=== PATIENT | female | born 1925 | race Caucasian/White ===

== ENCOUNTER 2016-04-17 19:22 | Inpatient (IN) | payer MEDICARE, BC ==
[~2016-04-17] VITALS: Ht 165.1 cm; Wt 80.7 kg
[~2016-04-17 19:22] MED LIST: ATOR10TA PO; Acetaminophen PO; FERR240T2 PO; Furosemide PO; GUAI5SYR4 PO; HYDR-3326 PO; LEVO50TA8 PO; MENT71OI TOP; METO-302 PO; MULT1TAB PO; Nystatin TOP; OMEG1CAP55 PO; PANT40TA4 PO; WARF3TAB29 PO
--- NOTE | 2016-04-17 19:40 | NUR ---
PT BIB [facility] 89 WITH NO COMPLAINTS.ACCORDING TO PARAMEDICS PT DENIED ANY PROBLEMS.PT AWAKE AND ANSWERING SIMPLE QUESTIONS.WHEN I ASKED HER WHAT WAS WRONG SHE TOLD ME SHE ACHED ALL OVER. PTS SON ADVISED PATIENT MENTATION CHANGED 04/16/16 AROUND 2300 WHEN LEVLE OF CONCIOUSNESS BEGAN TO ALTER. NO RESP DISTRESS NOTED OR REPORTED UPON ASSESSMENT, MD AT BEDSIDE.
[2016-04-17] MEDS ORDERED: IV NORMAL SALINE 1000 ML BAG IV ONE (20:30)
[2016-04-17 21:18] LABS: BASOPHILS % (AUTO) 0.3 % (0.0-2.0); EOSINOPHILS # (AUTO) 0.2 K/uL (0.0-0.7); EOSINOPHILS % (AUTO) 1.8 % (0.0-7.0); HEMATOCRIT 33.2 % (37.0-47.0); HEMOGLOBIN 10.9 g/dL (12.0-16.0); LYMPHOCYTES # (AUTO) 0.7 K/uL (0.8-4.8); LYMPHOCYTES % (AUTO) 7.5 % (20.5-51.5); MEAN CORPUSCULAR HEMOGLOBIN 29.9 uug (27.0-31.0); MEAN CORPUSCULAR HGB CONC 33 g/dL (32.0-37.0); MEAN CORPUSCULAR VOLUME 91.1 fL (81.0-99.0); MONOCYTES # (AUTO) 0.5 K/uL (0.1-1.30); MONOCYTES % (AUTO) 5.6 % (0.0-11.0); NEUTROPHILS # (AUTO) 7.5 K/uL (1.8-8.9); NEUTROPHILS % (AUTO) 84.8 % (38.5-71.5); PLATELET COUNT (AUTO) 201 K/uL (150-450); RED BLOOD CELL COUNT(AUTO) 3.64 MIL/uL (4.20-5.40); RED CELL DISTRIBUTION WIDTH 13.8 % (11.5-14.5); WHITE BLOOD COUNT (AUTO) 8.9 K/uL (4.0-11.2)
[2016-04-17 21:29] LABS: CALCIUM 8.1 mg/dL (8.5-10.1); POTASSIUM 5.7 mmol/L (3.5-5.1)
[2016-04-17 21:30] LABS: CREATININE 3.1 mg/dL (0.6-1.3)
[2016-04-17 21:38] LABS: TROPONIN I < 0.017 ng/mL (0.00-0.056)
[2016-04-17 21:43] LABS: ALBUMIN 2.6 g/dL (3.4-5.0); BILIRUBIN,TOTAL 0.2 mg/dL (0.2-1.0); TOTAL PROTEIN, SERUM 6.5 g/dL (6.4-8.2)
[2016-04-17 21:44] LABS: BILIRUBIN,DIRECT 0.1 mg/dL (0.0-0.2)
[2016-04-17 21:53] LABS: LACTIC ACID 0.8 mmol/L (0.4-2.0)
[2016-04-17] MEDS ORDERED: HALOPERIDOL LACTATE 5 MG/1 ML VIAL IV ONE (22:00)
[2016-04-17] MEDS ORDERED: CEFTRIAXONE 1 G in IV DEXTROSE 5% 50 ML IV ONE (22:00)
[2016-04-17] MEDS ORDERED: VANCOMYCIN IV 1,000 MG in IV DEXTROSE 5% 250 ML IV ONE (22:00)
[2016-04-17] MEDS ORDERED: HALOPERIDOL LACTATE 5 MG/1 ML VIAL ONE (22:15)
[2016-04-17] MEDS ORDERED: VANCOMYCIN IV 200 ML ONE (22:20)
[2016-04-17] MEDS ORDERED: CEFTRIAXONE 1 G VIAL ONE (22:21)
--- NOTE | 2016-04-17 23:37 | NUR ---
FAMILY PERSON WENT HOME TO GET COPY OF MEDS FOR VERIFICATION
[2016-04-18] VITALS (43 sets, daily range): BP systolic 56–149; BP diastolic 20–87
[2016-04-18 00:29] LABS: *BILIRUBIN,URIN NEGATIVE (NEGATIVE); *BLOOD, URINE 2+ (NEGATIVE); *CLARITY,URINE CLOUDY (CLEAR); *COLOR,URINE YELLOW (YELLOW); *KETONES,URINE NEGATIVE (NEGATIVE); *PROTEIN,URINE 1+ (NEGATIVE); *UROBILINOGEN,URINE 0.2 E.U./dl (NORMAL); LEUKOCYTE ESTERASE ,URINE 3+ (NEGATIVE); NITRITE, URINE NEGATIVE (NEGATIVE); PH,URINE 5.5 (5.0-8.0); UGLUCOSE NEGATIVE (NEGATIVE)
[2016-04-18] MEDS ORDERED: ONDANSETRON 4 MG/2 ML VIAL IV PRN (00:30)
[2016-04-18] MEDS ORDERED: ACETAMINOPHEN 325 MG TABLET PO PRN (00:30)
[2016-04-18] MEDS ORDERED: CELE-85 PO (00:31)
[2016-04-18] MEDS ORDERED: OMEG1CAP40 PO (00:31)
[2016-04-18] MEDS ORDERED: CHOL100043 PO (00:31)
[2016-04-18] MEDS ORDERED: FERR-58 PO (00:31)
[2016-04-18] MEDS ORDERED: WARF5TAB6 PO (00:31)
[2016-04-18] MEDS ORDERED: ALEN70TA45 PO (00:31)
[2016-04-18] MEDS ORDERED: VALS1TAB71 PO (00:31)
[2016-04-18] MEDS ORDERED: FURO40TA5 PO (00:31)
[2016-04-18] MEDS ORDERED: CALC500T71 PO (00:31)
[2016-04-18 00:52] LABS: BACTERIA,URINE MANY /HPF (NONE SEEN); SQUAMOUS EPITHELIAL CELL,UR FEW /HPF (NONE SEEN); WBC,URINE TNTC /HPF (0-3)
--- NOTE | 2016-04-18 01:00 | NUR ---
PTS SON ADVISED GOWN HAD TO BE REMOVED DUE PT BECOMING EXTREMELY AGITATED, AND TRYING TO HIT STAFF UPON TRYING TO DISROBE PT, ADVISED GOWN WAS CUT TO EASE REMOVAL OF CLOTHING TO TRY TO KEEP PT CALM, AND RELAXED POSSIBLE. PTS SON STATED HE UNDERSTOOD, INITIALLY HE WAS UPSET THAT GOWN HAD BEEN REMOVED IN THAT MANNER. LATER SON WENT ON TO ADVISE THAT HE WAS OK WITH METHOD USED TO HAVE GOWN. PTS SON THANKED STAFF UPON EXITING ER AND ACCOMPANYING NURSE TO TRANSFER PT....
--- NOTE | 2016-04-18 01:15 | NUR ---
Pt. admitted to TELE/CCU BED1 , under care of Dr. HARPER, Belongs List completed, PT TRANSFERRED VIA GURNEY WITH CAREGIVER AND SON AT BEDSIDE... NO RESP DISTRESS NOTED OR REPORTED UPON TRANSFER ASSESSMENT.
--- NOTE | 2016-04-18 01:20 | NUR ---
Admitted to TELE STATUS: In CCU bed #1 as hospital convenience. Son: Sourav Plants [phone] with patient, went home. Loida: child care worker, will stay at bedside. Finishing ATBx via pump to right forearm, site clear. O2 3L N/C; SaO2 monitored. Bell / light yellow urine output. Left leg tender / prior healed Fx. Sent rapid influenza & MRSA of nares. Sleeping S/P Haldol in ER dept.
[2016-04-18] MEDS ORDERED: PANTOPRAZOLE SODIUM 40 MG TABLET.DR PO SCH (07:00)
--- NOTE | 2016-04-18 07:00 | NUR ---
report received from Lico. Patient was admitted to ccu as tele overflow for dereased level of activity and not eating at home. admittibng diagnoses are AMS, CHF, HYPERKALEMIA, warfarin induced coagulopathy. she has medical history that includes AOTIC VALVE replacement, bladder CA osteoarthritis. ekg is sinus tach 102/min with wide qrs 0.12 secs. bp stable 149/50. on at 3lnc, she has a suarez catheter draning urine appr 20ml/hr. she has intermittent leg compressors. pedal pulses are weak to palpaton. she has eccyhmotic areas bilateral arms. is afebrile Addendum: 04/18/16 at 0859 by TAMI MARTINEZ RN Amended: Links added.
[2016-04-18 08:16] LABS: BASOPHILS # (AUTO) 0.1 K/uL (0.0-0.2); BASOPHILS % (AUTO) 0.5 % (0.0-2.0); EOSINOPHILS # (AUTO) 0.1 K/uL (0.0-0.7); EOSINOPHILS % (AUTO) 0.6 % (0.0-7.0); HEMATOCRIT 31.6 % (37.0-47.0); HEMOGLOBIN 10.3 g/dL (12.0-16.0); LYMPHOCYTES % (AUTO) 9.6 % (20.5-51.5); MEAN CORPUSCULAR HEMOGLOBIN 30.2 uug (27.0-31.0); MEAN CORPUSCULAR HGB CONC 33 g/dL (32.0-37.0); MEAN CORPUSCULAR VOLUME 92.6 fL (81.0-99.0); MONOCYTES # (AUTO) 0.5 K/uL (0.1-1.30); MONOCYTES % (AUTO) 4.8 % (0.0-11.0); NEUTROPHILS # (AUTO) 8.8 K/uL (1.8-8.9); NEUTROPHILS % (AUTO) 84.5 % (38.5-71.5); PLATELET COUNT (AUTO) 188 K/uL (150-450); RED BLOOD CELL COUNT(AUTO) 3.41 MIL/uL (4.20-5.40); RED CELL DISTRIBUTION WIDTH 14.6 % (11.5-14.5); WHITE BLOOD COUNT (AUTO) 10.5 K/uL (4.0-11.2)
[2016-04-18 09:08] LABS: ALBUMIN 2.5 g/dL (3.4-5.0); BILIRUBIN,TOTAL 0.3 mg/dL (0.2-1.0); CALCIUM 7.7 mg/dL (8.5-10.1); MAGNESIUM 2.5 mg/dL (1.8-2.4); PHOSPHOROUS 6.8 mg/dL (2.5-4.9); TOTAL PROTEIN, SERUM 6.4 g/dL (6.4-8.2)
[2016-04-18 09:14] LABS: POTASSIUM 6.2 mmol/L (3.5-5.1)
[2016-04-18 09:21] LABS: THYROID STIMULATING HORMONE 3.376 mIU/mL (0.358-3.740)
--- NOTE | 2016-04-18 09:40 | NUR ---
critical lab result for k 6.[address] fernandes. received new orders Addendum: 04/18/16 at 0948 by TAMI MARTINEZ RN Amended: Links added.
[2016-04-18] MEDS ORDERED: DEXTROSE 50% 50 ML DISP.SYRIN IV ONE (09:45)
[2016-04-18] MEDS ORDERED: INSULIN REGULAR, HUMAN 300 UNIT/3 ML VIAL IV ONE (09:45)
[2016-04-18] MEDS ORDERED: PANTOPRAZOLE SODIUM 40 MG VIAL IV SCH (10:00)
[2016-04-18] MEDS ORDERED: ACETAMINOPHEN 650 MG SUPP.RECT RC PRN (10:00)
[2016-04-18] MEDS ORDERED: PHYTONADIONE 10 MG/1 ML AMPUL SQ ONE (10:00)
[2016-04-18] MEDS ORDERED: Z GUARD REMEDY PASTE 57 GM TUBE TOP PRN (10:00)
[2016-04-18] MEDS: IV D5 1/2 NS 1000 ML 1,000 ML IV PRN (10:09)
--- NOTE | 2016-04-18 10:17 | NUR ---
i ampule 50 ml of dextrose 50% given IV, followed with 10 units IV insulin. Viatmin K also given sq. IV fluid started IV via right forearm at 70ml/hr/ remains oliguric Addendum: 04/18/16 at 1043 by TAMI MARTINEZ RN Amended: Links added. Addendum: 04/18/16 at 1044 by TAMI MARTINEZ RN Amended: Links added.
--- NOTE | 2016-04-18 10:41 | NUR ---
kept NPO .patient is too drowsy to eat and drink. Addendum: 04/18/16 at 1041 by TAMI MARTINEZ RN Amended: Bonilla added. Addendum: 04/18/16 at 1043 by TAMI MARTINEZ RN Amended: Links added. Addendum: 04/18/16 at 1044 by TAMI MARTINEZ RN Amended: Links added.
--- NOTE | 2016-04-18 10:44 | NUR ---
seen by dr bass. orders received. Addendum: 04/18/16 at 1044 by TAMI MARTINEZ RN Amended: Links added.
[2016-04-18] MEDS ORDERED: FUROSEMIDE 40 MG/4 ML VIAL IV ONE (10:45)
[2016-04-18] MEDS: PIPERACILLIN/TAZOBACTAM/D5W 2.25 G in PREMIXED 1 EACH IV SCH ×2 (11:13→18:14)
[2016-04-18] MEDS ORDERED: NOREPINEPHRINE BITARTRATE 16 MG in IV DEXTROSE 5% 500 ML IV PRN (11:30)
--- NOTE | 2016-04-18 12:10 | NUR ---
started on levophed drip per dr poon. patient now ICU status. Dr Souza informed Addendum: 04/18/16 at 1224 by TAMI MARTINEZ RN Amended: Links added.
[2016-04-18] MEDS ORDERED: LORAZEPAM 2 MG/1 ML VIAL IV ONE (14:30)
--- NOTE | 2016-04-18 15:09 | NUR ---
seen by dr fernandes. orders received. medicated for jerky movements Addendum: 04/18/16 at 1509 by TAMI MARTINEZ RN Amended: Links added.
--- NOTE | 2016-04-18 16:55 | NUR ---
Clinical Pharmacy Note: Vancomycin Dosing per Pharmacy Subjective: To start vancomycin in this 89 y/o female for "documented infection" (no MD note yet) Objective: Height: 152cm Weight: 75kg BUN 77/Scr 3.0 (not HD) WBC 10.5 Temperature 97.4 Assessment/Plan: Due to advanced age and renal function, will dose by level for now. 1gm vanco x1 time dose given in ER 04/17 @2300. Will not dose today. Ordered random level with am labs tomorrow 04/19 @ 0600. Will check level and re-dose as appropriate. Will continue to monitor renal function and adjust as needed as well. Will follow daily.
[2016-04-18] MEDS ORDERED: DOCUSATE SODIUM 250 MG CAPSULE PO SCH (21:00)
[2016-04-18] MEDS ORDERED: DOCUSATE SODIUM 100 MG CAPSULE PO SCH (21:00)
[2016-04-19] VITALS (30 sets, daily range): BP systolic 91–143; BP diastolic 37–83
[2016-04-19] MEDS: IV D5 1/2 NS 1000 ML 1,000 ML IV PRN ×2 (01:22→18:01)
[2016-04-19] MEDS: PIPERACILLIN/TAZOBACTAM/D5W 2.25 G in PREMIXED 1 EACH IV SCH ×3 (01:24→18:01)
[2016-04-19 05:20] LABS: BASOPHILS # (AUTO) 0.1 K/uL (0.0-0.2); BASOPHILS % (AUTO) 0.6 % (0.0-2.0); EOSINOPHILS # (AUTO) 0.1 K/uL (0.0-0.7); EOSINOPHILS % (AUTO) 1.7 % (0.0-7.0); HEMATOCRIT 28.7 % (37.0-47.0); HEMOGLOBIN 9.3 g/dL (12.0-16.0); LYMPHOCYTES # (AUTO) 1.4 K/uL (0.8-4.8); MEAN CORPUSCULAR HEMOGLOBIN 29.9 uug (27.0-31.0); MEAN CORPUSCULAR HGB CONC 33 g/dL (32.0-37.0); MEAN CORPUSCULAR VOLUME 91.8 fL (81.0-99.0); MONOCYTES # (AUTO) 0.6 K/uL (0.1-1.30); MONOCYTES % (AUTO) 7.1 % (0.0-11.0); NEUTROPHILS # (AUTO) 6.4 K/uL (1.8-8.9); NEUTROPHILS % (AUTO) 74.6 % (38.5-71.5); PLATELET COUNT (AUTO) 205 K/uL (150-450); RED BLOOD CELL COUNT(AUTO) 3.13 MIL/uL (4.20-5.40); RED CELL DISTRIBUTION WIDTH 14.1 % (11.5-14.5); WHITE BLOOD COUNT (AUTO) 8.6 K/uL (4.0-11.2)
[2016-04-19 06:07] LABS: ALBUMIN 2.3 g/dL (3.4-5.0); BILIRUBIN,TOTAL 0.3 mg/dL (0.2-1.0); CALCIUM 7.2 mg/dL (8.5-10.1); MAGNESIUM 2.5 mg/dL (1.8-2.4); PHOSPHOROUS 6.3 mg/dL (2.5-4.9); POTASSIUM 5.6 mmol/L (3.5-5.1); TOTAL PROTEIN, SERUM 6.2 g/dL (6.4-8.2)
[2016-04-19 06:08] LABS: CREATININE 3.2 mg/dL (0.6-1.3)
[2016-04-19] MEDS: PANTOPRAZOLE SODIUM 40 MG VIAL IV SCH (07:10)
--- NOTE | 2016-04-19 07:15 | NUR ---
report received from Jonathan DE LOS SANTOS. Patient remains as CCu status. off levophed since 3am. stable vital signs. suarez catheter intact with scanty urine. o2 at 3lnc. IV fluid D5 1/2 NS infusing at 70ml/hr. afebrile st 108/min. Addendum: 04/19/16 at 0928 by TAMI MARTINEZ RN Amended: Links added.
[2016-04-19] MEDS ORDERED: DEXTROSE 50% 50 ML DISP.SYRIN IV ONE (09:15)
[2016-04-19] MEDS ORDERED: INSULIN REGULAR, HUMAN 300 UNIT/3 ML VIAL IV ONE (09:15)
[2016-04-19] MEDS ORDERED: VANCOMYCIN IV 1 G in PREMIXED 0 EACH IV ONE (10:00)
[2016-04-19] MEDS ORDERED: BUMETANIDE INJ 3 MG in IV DEXTROSE 5% 48 ML IV ONE (13:00)
--- NOTE | 2016-04-19 13:36 | NUR ---
wendi schafer 3mg started at 20ml/hr Addendum: 04/19/16 at 1336 by TAMI MARTINEZ RN Amended: Links added.
--- NOTE | 2016-04-19 14:25 | NUR ---
dr fernandes was called re positive mrsa chua. orders received Addendum: 04/19/16 at 1441 by TAMI MARTINEZ RN Amended: Links added.
--- NOTE | 2016-04-19 14:25 | NUR ---
placed on contact isolation. caregiver and family instructed on isolation procedures. Addendum: 04/19/16 at 1443 by TAMI MARTINEZ RN Amended: Links added.
[2016-04-19] MEDS: BACITRACIN/POLYMYXIN B OINT 15 GM TUBE TOP SCH ×2 (18:01→21:46)
--- NOTE | 2016-04-19 19:20 | NUR ---
report given to Sydnie Addendum: 04/19/16 at 1957 by TAMI MARTINEZ RN Amended: Links added.
--- NOTE | 2016-04-19 19:45 | NUR ---
Received pt in no apparent distress. Pt is awake, responds to voice, opens eyes. No s/s of pain or discomfort except with movement. Lungs coarse bilat, with O2 saturations 98% on 3L O2 via NC, decreased to 2L now with O2 saturations maintaining at 98%. Bell catheter with clear yellow urine. Turned to left side.
[2016-04-19 20:47] LABS: ABG BASE EXCESS -6.6 mmol/L; ABG HCO3 20.9 mmol/L; ABG PCO2 51.6 mmHg (35.0-45.0); ABG PH 7.226 (7.350-7.450); ABG PO2 120.1 mmHg (75.0-100.0); ABG SITE LEFT BRACHIAL; ABG TOTAL HEMOGLOBIN 10.1 G/dL (12.0-16.0); COHb 0.8 % (0.5-1.5); MetHb 0.2 % (0.0-1.5); O2Hb 97.5 % (94.0-97.0); VENT MODE Nasal Cannula
--- NOTE | 2016-04-19 21:30 | NUR ---
RECEIVED PT ON O2 2LPM VIA NASAL CANNULA. ABG DRAWN AND RESULTS GIVEN TO FRANTZ DE LOS SANTOS WITH CRITICAL VALUE. MD CALLED WITH NEW ORDERS. PLACED PT ON BIPAP I=10 E = 5 RATE 12 FIO2 30% TO KEEP SAT GREATER THAN 92% . PT LETHARGIC AT THIS TIME. PT TOLERATING CURRENT SETTINGS AT THIS TIME SPO2 96%. NO DISTRESS NOTED. WILL CONTINUE TO MONITOR.
[2016-04-19] MEDS ORDERED: MUPIROCIN 2% OINT 22 GM TUBE ONE (22:20)
[2016-04-19] MEDS: MUPIROCIN 2% OINT 22 GM TUBE NS SCH (23:11)
[2016-04-20] VITALS (24 sets, daily range): BP systolic 86–142; BP diastolic 33–95
[2016-04-20] MEDS: PIPERACILLIN/TAZOBACTAM/D5W 2.25 G in PREMIXED 1 EACH IV SCH ×2 (01:20→10:10)
[2016-04-20 05:14] LABS: BASOPHILS # (AUTO) 0.1 K/uL (0.0-0.2); BASOPHILS % (AUTO) 0.8 % (0.0-2.0); EOSINOPHILS # (AUTO) 0.1 K/uL (0.0-0.7); EOSINOPHILS % (AUTO) 1.6 % (0.0-7.0); HEMATOCRIT 29.4 % (37.0-47.0); HEMOGLOBIN 9.6 g/dL (12.0-16.0); LYMPHOCYTES % (AUTO) 12.3 % (20.5-51.5); MEAN CORPUSCULAR HEMOGLOBIN 29.7 uug (27.0-31.0); MEAN CORPUSCULAR HGB CONC 33 g/dL (32.0-37.0); MEAN CORPUSCULAR VOLUME 91.3 fL (81.0-99.0); MONOCYTES # (AUTO) 0.8 K/uL (0.1-1.30); MONOCYTES % (AUTO) 10.3 % (0.0-11.0); NEUTROPHILS # (AUTO) 5.9 K/uL (1.8-8.9); PLATELET COUNT (AUTO) 171 K/uL (150-450); RED BLOOD CELL COUNT(AUTO) 3.22 MIL/uL (4.20-5.40); RED CELL DISTRIBUTION WIDTH 13.7 % (11.5-14.5); WHITE BLOOD COUNT (AUTO) 7.9 K/uL (4.0-11.2)
[2016-04-20 05:34] LABS: BILIRUBIN,TOTAL 0.4 mg/dL (0.2-1.0); CALCIUM 7.1 mg/dL (8.5-10.1); MAGNESIUM 2.4 mg/dL (1.8-2.4); POTASSIUM 4.6 mmol/L (3.5-5.1); TOTAL PROTEIN, SERUM 5.5 g/dL (6.4-8.2)
[2016-04-20 06:12] LABS: CREATININE 2.6 mg/dL (0.6-1.3)
[2016-04-20] MEDS: PANTOPRAZOLE SODIUM 40 MG VIAL IV SCH (06:59)
[2016-04-20] MEDS ORDERED: Z GUARD REMEDY PASTE 57 GM TUBE TOP PRN (08:15)
[2016-04-20] MEDS: MORPHINE SULFATE 2 MG/1 ML DISP.SYRIN IV PRN ×2 (08:24→13:40)
[2016-04-20] MEDS: IV D5 1/2 NS 1000 ML 1,000 ML IV PRN (08:33)
--- NOTE | 2016-04-20 09:26 | NUR ---
PT TAKEN OFF BIPAP AND PLACED ON 2LPM NC. PER DR MCKEON, ABG TO BE DONE OFF BIPAP.
[2016-04-20 09:59] LABS: ABG BASE EXCESS -6.8 mmol/L; ABG HCO3 19.1 mmol/L; ABG PCO2 39.8 mmHg (35.0-45.0); ABG PH 7.299 (7.350-7.450); ABG PO2 125.1 mmHg (75.0-100.0); ABG SITE LEFT RADIAL; ABG TOTAL HEMOGLOBIN 9.8 G/dL (12.0-16.0); MetHb 0.3 % (0.0-1.5); O2Hb 97.2 % (94.0-97.0); VENT MODE Nasal Cannula
[2016-04-20] MEDS: BACITRACIN/POLYMYXIN B OINT 15 GM TUBE TOP SCH ×2 (10:09→21:20)
[2016-04-20] MEDS: MUPIROCIN 2% OINT 22 GM TUBE NS SCH ×2 (10:10→21:20)
[2016-04-20] MEDS: Z GUARD REMEDY PASTE 57 GM TUBE TOP SCH ×2 (10:11→21:19)
--- NOTE | 2016-04-20 13:43 | NUR ---
PT REMAINS ON 2LPM NC AND APPEARS COMFORTABLE SHOWING NO SIGNS OF RESPIRATORY DISTRESS OFF OF BIPAP. BIPAP BY BEDSIDE
--- NOTE | 2016-04-20 13:44 | NUR ---
medicated for left leg pain. specially when being turned Addendum: 04/20/16 at 1344 by TAMI MARTINEZ RN Amended: Links added.
[2016-04-20 15:30] LABS: *BILIRUBIN,URIN NEGATIVE (NEGATIVE); *BLOOD, URINE 2+ (NEGATIVE); *CLARITY,URINE CLEAR (CLEAR); *COLOR,URINE YELLOW (YELLOW); *KETONES,URINE NEGATIVE (NEGATIVE); *PROTEIN,URINE 1+ (NEGATIVE); *UROBILINOGEN,URINE 0.2 E.U./dl (NORMAL); NITRITE, URINE NEGATIVE (NEGATIVE); UGLUCOSE NEGATIVE (NEGATIVE)
[2016-04-20 15:35] LABS: LEUKOCYTE ESTERASE ,URINE TRACE (NEGATIVE)
[2016-04-20 15:44] LABS: BACTERIA,URINE FEW /HPF (NONE SEEN); RBC,URINE 20-50 /HPF (0-3); SQUAMOUS EPITHELIAL CELL,UR FEW /HPF (NONE SEEN)
--- NOTE | 2016-04-20 17:50 | NUR ---
medicated for seizures. ativan and keppra Addendum: 04/20/16 at 1956 by TAMI MARTINEZ RN Amended: Links added. Addendum: 04/20/16 at 2002 by TAMI MARTINEZ RN above entry for another patient Addendum: 04/21/16 at 1341 by TAMI MARTINEZ RN above entry meant for another patient
[2016-04-20] MEDS: MEROPENEM 500 MG in IV NORMAL SALINE 50 ML IV SCH (17:52)
[2016-04-20 18:06] LABS: *URINE TOTAL PROTEIN RANDOM 42.5 mg/dL (<150/24HR)
--- NOTE | 2016-04-20 19:00 | NUR ---
seen by dr fernandes. order received to downgrade to tele status. report given to Juancarlos DE LOS SANTOS
--- NOTE | 2016-04-20 19:30 | NUR ---
Coordinated to Nursing Elastic Attacher Zigzag regarding the need for tele bed, per instruction pt wiil be moved the following day.
--- NOTE | 2016-04-20 20:00 | NUR ---
Seen patient resting comfortably, with CG at the bedside. Denies any pain, pt has good demeanor, she gets along with CG very well.Suarez intact,draining onesimo color urine. denies any discomfort at the suarez catheter place.
[2016-04-21] VITALS (12 sets, daily range): BP systolic 98–142; BP diastolic 50–69
--- NOTE | 2016-04-21 | NUR ---
Pt resting comfortably, turned and repositioned q 2 hours.CG at the bedside.
[2016-04-21] MEDS: IV D5 1/2 NS 1000 ML 1,000 ML IV PRN ×2 (01:22→20:26)
[2016-04-21] MEDS: MORPHINE SULFATE 2 MG/1 ML DISP.SYRIN IV PRN ×4 (01:40→18:00)
--- NOTE | 2016-04-21 02:30 | NUR ---
Given Morphine 1mg/IVP per MD's order, for pain level of 7/10 aching at the left leg.
--- NOTE | 2016-04-21 05:30 | NUR ---
Inserted new IV line at rt forearm (lateral side) with good blood return gauge 20.Labs drawn blood. X-Ray done as well.
[2016-04-21 05:36] LABS: BASOPHILS # (AUTO) 0.1 K/uL (0.0-0.2); BASOPHILS % (AUTO) 1.7 % (0.0-2.0); EOSINOPHILS # (AUTO) 0.3 K/uL (0.0-0.7); HEMATOCRIT 27.5 % (37.0-47.0); LYMPHOCYTES % (AUTO) 16.6 % (20.5-51.5); MEAN CORPUSCULAR HEMOGLOBIN 30.3 uug (27.0-31.0); MEAN CORPUSCULAR HGB CONC 33 g/dL (32.0-37.0); MEAN CORPUSCULAR VOLUME 92.4 fL (81.0-99.0); MONOCYTES # (AUTO) 0.5 K/uL (0.1-1.30); MONOCYTES % (AUTO) 8.2 % (0.0-11.0); NEUTROPHILS # (AUTO) 4.1 K/uL (1.8-8.9); NEUTROPHILS % (AUTO) 68.5 % (38.5-71.5); PLATELET COUNT (AUTO) 185 K/uL (150-450); RED BLOOD CELL COUNT(AUTO) 2.98 MIL/uL (4.20-5.40); RED CELL DISTRIBUTION WIDTH 14.1 % (11.5-14.5)
[2016-04-21] MEDS: MEROPENEM 500 MG in IV NORMAL SALINE 50 ML IV SCH ×2 (05:47→18:00)
[2016-04-21 05:49] LABS: ALBUMIN 1.9 g/dL (3.4-5.0); BILIRUBIN,TOTAL 0.3 mg/dL (0.2-1.0); CALCIUM 7.4 mg/dL (8.5-10.1); MAGNESIUM 2.3 mg/dL (1.8-2.4); PHOSPHOROUS 3.4 mg/dL (2.5-4.9); POTASSIUM 4.2 mmol/L (3.5-5.1); TOTAL PROTEIN, SERUM 5.5 g/dL (6.4-8.2)
[2016-04-21 06:03] LABS: CREATININE 1.5 mg/dL (0.6-1.3)
[2016-04-21] MEDS: PANTOPRAZOLE SODIUM 40 MG VIAL IV SCH (06:53)
--- NOTE | 2016-04-21 07:10 | NUR ---
eport received from Charity DE LOS SANTOS. Patient remains drpwsy but arousable. speech clear. remains having left leg pain specially with turning. on o2 2lnc. lungs diminished breath sounds. IV fluid D5 1/2 NS at 70ml/h new IV site #20 viaright forearm. ekg sinus rhythm with first degree av block and bundle branch block and pacs. suarez catheter intact with improved urine output Addendum: 04/21/16 at 0845 by TAMI MARTINEZ RN Amended: Links added.
--- NOTE | 2016-04-21 07:15 | NUR ---
report received from Charity DE LOS SANTOS. patient 86 yr old female. patient remains orally intubated . ett to vent [id number], ac20 fio2 35%. has inspiratory rhonci, no bowel sound. on levophed drip at 4 mcg/min. has multiple IV antibiotics. ogt intact now draining blood tinged brown drainage. vascath for hemodialysis via right femoral catheter. suarez intact 150 ml times 12hrs. ekg paced ddd@ 70/min Addendum: 04/21/16 at 0837 by TAMI MARTINEZ RN Amended: Links added.
--- NOTE | 2016-04-21 07:20 | NUR ---
Report to FILIBERTO Landers
[2016-04-21 07:46] LABS: CALCIUM 7.8 mg/dL (8.5-10.1); POTASSIUM 4.4 mmol/L (3.5-5.1)
[2016-04-21 07:47] LABS: CREATININE 1.4 mg/dL (0.6-1.3)
[2016-04-21] MEDS ORDERED: HEPARIN/D5W DRIP 500 ML IV PRN (09:30)
[2016-04-21] MEDS: MUPIROCIN 2% OINT 22 GM TUBE NS SCH ×2 (09:38→20:44)
[2016-04-21] MEDS: BACITRACIN/POLYMYXIN B OINT 15 GM TUBE TOP SCH ×2 (09:39→20:44)
[2016-04-21] MEDS: Z GUARD REMEDY PASTE 57 GM TUBE TOP SCH ×2 (09:40→20:44)
--- NOTE | 2016-04-21 10:45 | NUR ---
seen by dr bansal. orders received. Addendum: 04/21/16 at 1338 by TAMI MARTINEZ RN Amended: Bonilla added. Addendum: 04/21/16 at 1339 by TAMI MARTINEZ RN Amended: Bonilla added.
--- NOTE | 2016-04-21 11:30 | NUR ---
lovenox given sq instead of heparin drip per pharmacy and dr fernandes Addendum: 04/21/16 at 1339 by TAMI MARTINEZ RN Amended: Links added.
[2016-04-21] MEDS: ENOXAPARIN SODIUM 80 MG/0.8 ML DISP.SYRIN SQ SCH (11:32)
--- NOTE | 2016-04-21 11:45 | NUR ---
report given to Mojgan DE LOS SANTOS MS 2. patient was transported to room 226 on tele box. Addendum: 04/21/16 at 1151 by TAMI MARTINEZ RN Amended: Links added.
[2016-04-21 11:59] LABS: ABG BASE EXCESS -3.1 mmol/L; ABG HCO3 23.2 mmol/L; ABG PCO2 46.7 mmHg (35.0-45.0); ABG PH 7.314 (7.350-7.450); ABG PO2 102.4 mmHg (75.0-100.0); ABG SITE RIGHT RADIAL; ABG TOTAL HEMOGLOBIN 11.8 G/dL (12.0-16.0); COHb 1.5 % (0.5-1.5); MetHb 0.2 % (0.0-1.5); O2Hb 96.2 % (94.0-97.0); VENT MODE Nasal Cannula
--- NOTE | 2016-04-21 13:00 | NUR ---
Pt alert and oriented x 3. Pt is in no acute distress. Bruising noted on hands, redness on buttocks applied z-guard, band aid noted onright neck opened and found pt has small open wound with 1.5cmx0.4cm reapplied new band aid. it engineer at bedside states that pt has had the small wound on neck prior to admission here in the hospital. Pt on isolation for ESBL urine and MRSA on NARES discussed importance of isolation with caregiver at bedside-caregiver verbalized understanding. . 1degree av block with PAC noted on tele 90's. Call light is within reach.
--- NOTE | 2016-04-21 18:48 | NUR ---
Pt's pain has been managed with morphine 1mg IV. Pt is in no acute distress. Call light is within reach.
[2016-04-22 05:00] VITALS: BP 144/54
[2016-04-22] MEDS: MEROPENEM 500 MG in IV NORMAL SALINE 50 ML IV SCH ×2 (05:09→16:53)
[2016-04-22] MEDS: PANTOPRAZOLE SODIUM 40 MG VIAL IV SCH (06:41)
--- NOTE | 2016-04-22 06:59 | NUR ---
pt kept comfortable, not in acute distress, IVF infusing, call light within reach.
[2016-04-22 08:17] LABS: CALCIUM 8.4 mg/dL (8.5-10.1); CREATININE 1.2 mg/dL (0.6-1.3); MAGNESIUM 2.2 mg/dL (1.8-2.4); PHOSPHOROUS 3.1 mg/dL (2.5-4.9); POTASSIUM 4.5 mmol/L (3.5-5.1)
[2016-04-22 08:19] LABS: BASOPHILS % (AUTO) 0.1 % (0.0-2.0); EOSINOPHILS # (AUTO) 0.2 K/uL (0.0-0.7); EOSINOPHILS % (AUTO) 3.3 % (0.0-7.0); HEMATOCRIT 30.3 % (37.0-47.0); HEMOGLOBIN 9.8 g/dL (12.0-16.0); LYMPHOCYTES # (AUTO) 0.8 K/uL (0.8-4.8); MEAN CORPUSCULAR HEMOGLOBIN 29.7 uug (27.0-31.0); MEAN CORPUSCULAR HGB CONC 32 g/dL (32.0-37.0); MEAN CORPUSCULAR VOLUME 91.9 fL (81.0-99.0); MONOCYTES # (AUTO) 0.5 K/uL (0.1-1.30); MONOCYTES % (AUTO) 7.1 % (0.0-11.0); NEUTROPHILS # (AUTO) 5.8 K/uL (1.8-8.9); NEUTROPHILS % (AUTO) 78.5 % (38.5-71.5); PLATELET COUNT (AUTO) 175 K/uL (150-450); RED CELL DISTRIBUTION WIDTH 13.4 % (11.5-14.5); WHITE BLOOD COUNT (AUTO) 7.3 K/uL (4.0-11.2)
[2016-04-22] MEDS: ENOXAPARIN SODIUM 80 MG/0.8 ML DISP.SYRIN SQ SCH (08:37)
[2016-04-22] MEDS: MORPHINE SULFATE 2 MG/1 ML DISP.SYRIN IV PRN ×3 (08:38→20:20)
[2016-04-22] MEDS: Z GUARD REMEDY PASTE 57 GM TUBE TOP SCH ×2 (08:56→20:24)
[2016-04-22] MEDS: BACITRACIN/POLYMYXIN B OINT 15 GM TUBE TOP SCH ×2 (08:56→20:24)
[2016-04-22] MEDS: MUPIROCIN 2% OINT 22 GM TUBE NS SCH ×2 (08:56→20:21)
[2016-04-22 11:50] VITALS: BP 131/60
[2016-04-22] MEDS: IV D5 1/2 NS 1000 ML 1,000 ML IV PRN (14:26)
[2016-04-22 15:47] VITALS: BP 160/75
--- NOTE | 2016-04-22 19:30 | NUR ---
RESTING IN BED COMFORTABLY. NO ACUTE DISTRESS NOTED. WITH PRESCHOOL TEACHER AIDE AT BEDSIDE. ALERT, ABLE TO ANSWER SIMPLE QUESTIONS. NEEDS ATTENDED. CALL LIGHT WITHIN REACH. WILL CONTINUE TO MONITOR
[2016-04-22 20:00] VITALS: BP 163/72
[2016-04-23] MEDS: MORPHINE SULFATE 2 MG/1 ML DISP.SYRIN IV PRN ×2 (02:21→08:14)
[2016-04-23] MEDS: MEROPENEM 500 MG in IV NORMAL SALINE 50 ML IV SCH ×2 (04:44→17:19)
--- NOTE | 2016-04-23 06:15 | NUR ---
SLEPT ONLY FOR A FEW HOURS, SLEPT INTERMITTENTLY. NO ACUTE DISTRESS NOTED BUT STILL WITH PERIODS OF CONFUSION ALSO STATING SHE WANTS TO GO HOME. EXPLAINED IMPORTANCE OF HER BEING HERE IN THE HOSPITAL. ALL DUE MEDS GIVEN ORDERED. STILL WITH SHOE COVERER AT BEDSIDE.
[2016-04-23] MEDS: PANTOPRAZOLE SODIUM 40 MG VIAL IV SCH (06:23)
[2016-04-23 06:45] VITALS: BP 157/70
[2016-04-23 07:08] LABS: BASOPHILS % (AUTO) 0.2 % (0.0-2.0); EOSINOPHILS # (AUTO) 0.3 K/uL (0.0-0.7); EOSINOPHILS % (AUTO) 4.2 % (0.0-7.0); HEMATOCRIT 29.7 % (37.0-47.0); HEMOGLOBIN 9.7 g/dL (12.0-16.0); LYMPHOCYTES % (AUTO) 14.5 % (20.5-51.5); MEAN CORPUSCULAR HEMOGLOBIN 30.2 uug (27.0-31.0); MEAN CORPUSCULAR HGB CONC 33 g/dL (32.0-37.0); MEAN CORPUSCULAR VOLUME 92.9 fL (81.0-99.0); MONOCYTES # (AUTO) 0.5 K/uL (0.1-1.30); MONOCYTES % (AUTO) 7.4 % (0.0-11.0); NEUTROPHILS # (AUTO) 5.2 K/uL (1.8-8.9); NEUTROPHILS % (AUTO) 73.7 % (38.5-71.5); PLATELET COUNT (AUTO) 195 K/uL (150-450); RED CELL DISTRIBUTION WIDTH 13.9 % (11.5-14.5); WHITE BLOOD COUNT (AUTO) 7.1 K/uL (4.0-11.2)
[2016-04-23 07:41] LABS: ALBUMIN 2.1 g/dL (3.4-5.0); BILIRUBIN,TOTAL 0.3 mg/dL (0.2-1.0); CALCIUM 8.5 mg/dL (8.5-10.1); MAGNESIUM 2.2 mg/dL (1.8-2.4); POTASSIUM 4.2 mmol/L (3.5-5.1); TOTAL PROTEIN, SERUM 5.8 g/dL (6.4-8.2)
[2016-04-23] MEDS: Z GUARD REMEDY PASTE 57 GM TUBE TOP SCH (08:16)
[2016-04-23] MEDS: MUPIROCIN 2% OINT 22 GM TUBE NS SCH (08:16)
[2016-04-23] MEDS: BACITRACIN/POLYMYXIN B OINT 15 GM TUBE TOP SCH (08:16)
[2016-04-23] MEDS ORDERED: ENOXAPARIN SODIUM 80 MG/0.8 ML DISP.SYRIN SQ SCH ×2 (09:00→21:00)
[2016-04-23 11:24] VITALS: BP 156/77
[2016-04-23] MEDS: IV D5 1/2 NS 1000 ML 1,000 ML IV PRN (11:50)
[2016-04-23 15:21] VITALS: BP 148/64
[2016-04-23] MEDS ORDERED: ALBUTEROL SULFATE 1.25 MG/3 ML NEBU NEB PRN (17:30)
--- NOTE | 2016-04-23 18:07 | NUR ---
The patient will be discharged today to [facility] [ ; [address] [place] [address]] via [facility]. Spoke to the patient's son, Holland [ ], who requested [facility] because she was there in the past and he was in agreement with a late discharge. Also spoke with Abbe, Assist. Admin, from [facility] and he confirmed that they will admit the patient today. Her RN, Raina, is aware of her discharge plan and will call the facility for the discharge.
--- NOTE | 2016-04-23 18:16 | NUR ---
Preparing patient for discharge at this time. Patient to be discharged to [facility]. Patient son agreeable to plan. Patient received breathing treatment and is no longer labored. Patient calm and cooperative. Aware of discharge plan at this time.
[2016-04-23] MEDS ORDERED: ACET-2154 PO (18:35)
[2016-04-23] MEDS ORDERED: PANT40TA2 PO (18:35)
[2016-04-23] MEDS ORDERED: MERO500V IV (18:35)
[2016-04-23] MEDS ORDERED: VALS80TA26 PO (18:35)
[2016-04-23] MEDS ORDERED: ENOX80DI SQ (18:35)
[2016-04-23] MEDS ORDERED: METO50TA7 PO (18:35)
[2016-04-23] MEDS ORDERED: ALBU1.25 NEB (18:35)
[2016-04-23] MEDS ORDERED: MUPI22OI2 NS (18:35)
--- NOTE | 2016-04-23 20:05 | NUR ---
PATIENT LEFT FACILITY, REPORT GIVEN TO ocean freight manager BY DAYSHIFT NURSE. ALSO GAVE REPORT TO FACILITY WHO WILL BE RECEIVING THE PATIENT. PATIENT LEFT IN STABLE CONDITION. NO ACUTE DISTRESS.
== END 2016-04-23 20:05 | DRG 871 ==
LOC: ER 19:22 → CCU 04-18 00:28 → TELE 04-21 11:54 → MED 04-21 21:54
PROVIDERS: ADMIT Internal Medicine; ATTEND Internal Medicine
PROC: 5A09357 Assistance with Respiratory Ventilation, Less than 24 Consecutive Hours, Continuous Positive Airway Pressure (ICD-10-PCS; principal; 2016-04-19)
DX: A41.9 Sepsis, unspecified organism (principal); G93.40 Encephalopathy, unspecified; I50.33 Acute on chronic diastolic (congestive) heart failure; J69.0 Pneumonitis due to inhalation of food and vomit; N17.0 Acute kidney failure with tubular necrosis; E43 Unspecified severe protein-calorie malnutrition; J96.01 Acute respiratory failure with hypoxia; J96.02 Acute respiratory failure with hypercapnia; R65.21 Severe sepsis with septic shock; N39.0 Urinary tract infection, site not specified; D68.59 Other primary thrombophilia; M48.54XA Collapsed vertebra, not elsewhere classified, thoracic region, initial encounter for fracture; E87.4 Mixed disorder of acid-base balance; K57.30 Diverticulosis of large intestine without perforation or abscess without bleeding; K58.9 Irritable bowel syndrome, unspecified; M19.90 Unspecified osteoarthritis, unspecified site; B96.20 Unspecified Escherichia coli [E. coli] as the cause of diseases classified elsewhere; E03.9 Hypothyroidism, unspecified; E87.5 Hyperkalemia; F03.90 Unspecified dementia, unspecified severity, without behavioral disturbance, psychotic disturbance, mood disturbance, and anxiety; Z85.828 Personal history of other malignant neoplasm of skin; Z87.11 Personal history of peptic ulcer disease; Z91.81 History of falling; Z16.12 Extended spectrum beta lactamase (ESBL) resistance; N18.9 Chronic kidney disease, unspecified; M81.0 Age-related osteoporosis without current pathological fracture; I25.10 Atherosclerotic heart disease of native coronary artery without angina pectoris; E78.5 Hyperlipidemia, unspecified; Z79.01 Long term (current) use of anticoagulants; K44.9 Diaphragmatic hernia without obstruction or gangrene; Z68.29 Body mass index [BMI] 29.0-29.9, adult; Z95.2 Presence of prosthetic heart valve; Z22.322 Carrier or suspected carrier of Methicillin resistant Staphylococcus aureus; E11.22 Type 2 diabetes mellitus with diabetic chronic kidney disease; M51.34 Other intervertebral disc degeneration, thoracic region; Z85.51 Personal history of malignant neoplasm of bladder; Z86.19 Personal history of other infectious and parasitic diseases; D50.0 Iron deficiency anemia secondary to blood loss (chronic)
CPT/HCPCS: 36415; 36600; 51702; 70030-TC; 70450; 71010; 73501; 73551; 73560; 73600; 83550; 83605; 83735; 83970; 84100; 84156; 84300; 84443; 85025; 85610; 85730; 87040; 87070; 87077; 87086; 87400; 92610; 93005; 94660; 94664; 97001; 97110; 97530; A4663; C9113; J0696; J1630; J1650; J1815; J1940; J2060; J2185; J2270; J2405; J2543; J3370; J3430; J3490; J7030; J7040; J7060

== ENCOUNTER 2016-05-04 21:30 | Inpatient (IN) | payer MEDICARE, BC ==
[~2016-05-04] VITALS: Ht 157.5 cm; Wt 82.6 kg
[~2016-05-04 21:30] MED LIST changes: +ACET-2154 PO; +ALBU1.25 NEB; +ALEN70TA45 PO; -Acetaminophen PO; +CALC500T71 PO; +CELE-85 PO; +CHOL100043 PO; +ENOX80DI SQ; +FERR-58 PO; -FERR240T2 PO; +FURO40TA5 PO; -Furosemide PO; -GUAI5SYR4 PO; -HYDR-3326 PO; +MERO500V IV; -METO-302 PO; +METO50TA7 PO; +MUPI22OI2 NS; -Nystatin TOP; +OMEG1CAP40 PO; -OMEG1CAP55 PO; +PANT40TA2 PO; -PANT40TA4 PO; +VALS80TA26 PO; -WARF3TAB29 PO; +WARF5TAB6 PO
--- NOTE | 2016-05-04 21:30 | NUR ---
Received pt from triage from ambulance came from [facility]. Pt was brought for low hemoglobin and hematocrit.Pt appears pale, caregiver at the bedside.CG stated that pt is having black stools but because of Iron pills.Pt is alert to self and place.Had hx of left leg fracture and was on brace. Son mentioned that he had bladder surgery. Takes pain medicine, per son Doni is no longer works for pt.They are about to start Oxycodone but has not started yet. Pt c/o of left hip pain.
--- NOTE | 2016-05-04 21:38 | NUR ---
PATIENT GOWN WAS CHANGED, DIAPER CHANGED, AND A UNDER MARIAELENA WAS PLACED UNDER PATIENT.
[2016-05-04] MEDS ORDERED: PANTOPRAZOLE SODIUM IV 80 MG in IV DEXTROSE 5% 100 ML IV ONE (21:45)
[2016-05-04 22:26] LABS: BASOPHILS # (AUTO) 0.1 K/uL (0.0-0.2); BASOPHILS % (AUTO) 0.6 % (0.0-2.0); EOSINOPHILS # (AUTO) 0.3 K/uL (0.0-0.7); EOSINOPHILS % (AUTO) 3.5 % (0.0-7.0); LYMPHOCYTES % (AUTO) 9.8 % (20.5-51.5); MEAN CORPUSCULAR HEMOGLOBIN 29.6 uug (27.0-31.0); MEAN CORPUSCULAR HGB CONC 31 g/dL (32.0-37.0); MEAN CORPUSCULAR VOLUME 94.8 fL (81.0-99.0); MONOCYTES # (AUTO) 0.4 K/uL (0.1-1.30); MONOCYTES % (AUTO) 3.8 % (0.0-11.0); NEUTROPHILS # (AUTO) 7.9 K/uL (1.8-8.9); NEUTROPHILS % (AUTO) 82.3 % (38.5-71.5); PLATELET COUNT (AUTO) 404 K/uL (150-450); RED CELL DISTRIBUTION WIDTH 15.8 % (11.5-14.5); WHITE BLOOD COUNT (AUTO) 9.7 K/uL (4.0-11.2)
[2016-05-04 22:33] LABS: RED BLOOD CELL COUNT(AUTO) 1.91 MIL/uL (4.20-5.40)
[2016-05-04 22:34] LABS: HEMATOCRIT 18.1 % (37.0-47.0); HEMOGLOBIN 5.7 g/dL (12.0-16.0)
[2016-05-04] MEDS ORDERED: PANTOPRAZOLE SODIUM 40 MG VIAL ONE (22:35)
[2016-05-04 22:42] LABS: ALBUMIN 2.1 g/dL (3.4-5.0); ANISOCYTOSIS 1+; BILIRUBIN,DIRECT 0.2 mg/dL (0.0-0.2); BILIRUBIN,TOTAL 0.7 mg/dL (0.2-1.0); CALCIUM 7.7 mg/dL (8.5-10.1); PLATELET ESTIMATE ADEQUATE; POTASSIUM 5.4 mmol/L (3.5-5.1); TOTAL PROTEIN, SERUM 6.2 g/dL (6.4-8.2)
[2016-05-04 22:43] LABS: LYMPHOCYTES % (MANUAL) 14 % (20-40); MONOCYTES % (MANUAL) 6 % (2-10); NEUTROPHILS % (MANUAL) 80 % (42-75)
[2016-05-04 22:44] LABS: CREATININE 2.4 mg/dL (0.6-1.3)
--- NOTE | 2016-05-04 22:45 | NUR ---
Given protonix 80mg/IVPB at 400mls/hr as ordered.
[2016-05-05] VITALS (11 sets, daily range): BP systolic 87–125; BP diastolic 40–57
[2016-05-05] MEDS ORDERED: MUPI1OIN BNOSTRILS (00:02)
[2016-05-05] MEDS ORDERED: HYDR-4076 PO (00:07)
[2016-05-05] MEDS ORDERED: MENT3.5O TP (00:07)
[2016-05-05] MEDS ORDERED: HYDR-548 PO (00:10)
[2016-05-05] MEDS ORDERED: OXYC10TA72 PO (00:13)
[2016-05-05] MEDS ORDERED: VALS80TA26 PO (00:19)
[2016-05-05] MEDS ORDERED: PANT40TA4 PO (00:19)
--- NOTE | 2016-05-05 00:30 | NUR ---
Report to FILIBERTO Odom. Pt going to room 211.
--- NOTE | 2016-05-05 00:45 | NUR ---
PATIENT ADMITTED UNDER THE CARE OF Karissa ARNETT, VIA RFREEMAN, PATIENT AWAKE BUT FORGETFUL, PATIENT IS TELE, NO SOB, NO CHEST, MD AWARE OF THE ADMISSION.
--- NOTE | 2016-05-05 00:45 | NUR ---
Transferred pt to 2nd floor room 211 via roseanna jose/ FILIBERTO Villanueva. signed consent for blood transfusion.
[2016-05-05] MEDS ORDERED: hydrALAZINE HCL 25 MG TABLET PO PRN (01:00)
[2016-05-05] MEDS ORDERED: ACETAMINOPHEN 325 MG TABLET PO PRN (01:00)
[2016-05-05] MEDS ORDERED: MAGNESIUM HYDROXIDE 30 ML LIQUID UDC PO PRN (01:00)
[2016-05-05] MEDS ORDERED: ONDANSETRON 4 MG/2 ML VIAL IV PRN (01:00)
[2016-05-05] MEDS ORDERED: HYDROCODONE/APAP 5-325MG TABLET PO PRN (01:00)
[2016-05-05] MEDS ORDERED: Z GUARD REMEDY PASTE 57 GM TUBE TOP PRN ×2 (01:00)
--- NOTE | 2016-05-05 05:46 | NUR ---
PATIENT AWAKE BUT FORGETFULL, TURN AND REPOSITION, KEPT CLEAN AND DRY, NO SOB NO CHEST PAIN, PATIENT SINUS RYTHM WITH 1ST DEGREE BUNDLE BRANCH. NO ADVERSE REACTION NOTED FROM TRANSFUSION NOTED, CONT TO MONITOR.
[2016-05-05] MEDS ORDERED: HYDROCODONE/APAP 5-325MG TABLET ONE (06:16)
--- NOTE | 2016-05-05 08:00 | NUR ---
Pt is in no acute distress. Bonesteel somewhat effective per pt. Pt c/o severe pain on left leg when being moved. Left leg +3 edema elevated with pillow and heel floated. Noted left groin excoriation applied z guard. IV on left arm intact. Dr Mejia here to see pt notified of swollen left leg - RACH ordered. Discussed plan of care with caregiver/clarifying plant operator/pt today re: pain management, fall precaution, float heel secondary to little purplish spot noted, and need for stool for OB. Call light is within reach. Addendum: 05/05/16 at 7164 by BHARATH MCMAHON RN Aspiration precaution implemented.
[2016-05-05] MEDS: PANTOPRAZOLE SODIUM 40 MG VIAL IV SCH ×2 (08:09→20:56)
[2016-05-05] MEDS: LEVOTHYROXINE SODIUM 50 MCG TABLET PO SCH (08:10)
[2016-05-05] MEDS: Z GUARD REMEDY PASTE 57 GM TUBE TOP SCH ×2 (08:11→21:01)
[2016-05-05] MEDS: CALCIUM CARBONATE 500 MG TABLET PO SCH (08:11)
[2016-05-05] MEDS ORDERED: FUROSEMIDE 20 MG/2 ML VIAL IV ONE (08:15)
[2016-05-05 08:25] LABS: *BILIRUBIN,URIN NEGATIVE (NEGATIVE); *BLOOD, URINE 1+ (NEGATIVE); *CLARITY,URINE CLOUDY (CLEAR); *COLOR,URINE YELLOW (YELLOW); *KETONES,URINE NEGATIVE (NEGATIVE); *PROTEIN,URINE NEGATIVE (NEGATIVE); *UROBILINOGEN,URINE 0.2 E.U./dl (NORMAL); LEUKOCYTE ESTERASE ,URINE 1+ (NEGATIVE); NITRITE, URINE NEGATIVE (NEGATIVE); UGLUCOSE NEGATIVE (NEGATIVE)
--- NOTE | 2016-05-05 08:30 | NUR ---
DVT pump on left leg withheld secondary to left leg swollen and pending ULTZ for DVT.
[2016-05-05 08:55] LABS: BACTERIA,URINE FEW /HPF (NONE SEEN); SQUAMOUS EPITHELIAL CELL,UR MANY /HPF (NONE SEEN); WBC,URINE 50-80 /HPF (0-3); YEAST,URINE MANY /HPF (NONE SEEN)
[2016-05-05 09:37] LABS: BILIRUBIN,TOTAL 0.8 mg/dL (0.2-1.0); CALCIUM 7.5 mg/dL (8.5-10.1); CREATININE 2.2 mg/dL (0.6-1.3); MAGNESIUM 2.2 mg/dL (1.8-2.4); PHOSPHOROUS 5.9 mg/dL (2.5-4.9); POTASSIUM 5.5 mmol/L (3.5-5.1)
[2016-05-05] MEDS ORDERED: MEROPENEM 500 MG in IV NORMAL SALINE 50 ML IV SCH (10:00)
[2016-05-05 10:17] LABS: BASOPHILS # (AUTO) 0.1 K/uL (0.0-0.2); BASOPHILS % (AUTO) 0.8 % (0.0-2.0); EOSINOPHILS # (AUTO) 0.3 K/uL (0.0-0.7); EOSINOPHILS % (AUTO) 3.1 % (0.0-7.0); HEMATOCRIT 26.1 % (37.0-47.0); HEMOGLOBIN 8.5 g/dL (12.0-16.0); LYMPHOCYTES # (AUTO) 1.2 K/uL (0.8-4.8); LYMPHOCYTES % (AUTO) 13.1 % (20.5-51.5); MEAN CORPUSCULAR HEMOGLOBIN 29.6 uug (27.0-31.0); MEAN CORPUSCULAR HGB CONC 33 g/dL (32.0-37.0); MONOCYTES # (AUTO) 0.4 K/uL (0.1-1.30); MONOCYTES % (AUTO) 4.6 % (0.0-11.0); NEUTROPHILS # (AUTO) 7.5 K/uL (1.8-8.9); NEUTROPHILS % (AUTO) 78.4 % (38.5-71.5); PLATELET COUNT (AUTO) 278 K/uL (150-450); RED BLOOD CELL COUNT(AUTO) 2.86 MIL/uL (4.20-5.40); RED CELL DISTRIBUTION WIDTH 15.4 % (11.5-14.5); WHITE BLOOD COUNT (AUTO) 9.5 K/uL (4.0-11.2)
[2016-05-05] MEDS: MEROPENEM 250 MG in IV NORMAL SALINE 50 ML IV SCH ×2 (10:53→22:56)
--- NOTE | 2016-05-05 11:20 | NUR ---
CLINICAL PHARMACY [place] [facility] [place] 89 y/o female sent back from SNF for decrease kidney function and severe anemia. Pt. had recent left hip surgery. now c/o pain and swelling in left leg. On labs noted to have creat>2.4 previously dc from hospital with creat of 1.4. Source: Patient, Family, Medical Records, Caregiver Past Medical History Past medical history 1. Significant acute encephalopathy 2. ESBL UTI with acute sepsis on previous admission. 3. SOB - likely acute on chronic diastolic HF. 4. Confirmed aspiration PNA contributing to sepsis. 5. Acute renal failure with ATN - still present. 6. Hyperkalemia and other electrolyte abnormalities. 7. Nonfasting hyperglycemia - borderline DM with HgA1c 6.2. 8. 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 9. Moderate to severe protein malnutrition. 10. Very poor mobility and hypercoagulable state. 11. History of recurrent infections. 12. Previous history of falls with osteoporotic fractures. 13. Iron deficiency anemia - likely occult GI blood loss. 14. Previously documented peptic ulcer disease. 15. Large hiatal hernia with stomach in the thorax. 16. Chronic abdominal tenderness and diarrhea - ? IBS. 17. History of shingles and recurrent fungal dermatitis. 18. Previously Dx bladder tumor (? CA - incomplete data). 19. History of surgically removed skin cancers. 20. Severe osteoarthritis and osteoporosis. 21. 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 22. Moderate to severe sigmoid colon diverticulosis. All medications review as of today several medication on high risk list. Hydralazine advise to use with caution may exacerbate episodes of syncope in individuals with history of syncope. Pantoprazole not recommended to use beyond 8 weeks risk of Clostridium difficile infection and bone loss and fractures. Zolpidem increase risk of falls. Hydralazine ordered on a prn bases for sbp above 160. Pantoprazole patient may have blood lose from GI bleed. Also listed on home medication list. Zolpidem order as part of admission orders at lower dose prn sleep. No recommendations at this time
[2016-05-05] MEDS: MORPHINE SULFATE 2 MG/1 ML DISP.SYRIN IV PRN ×2 (12:28→18:25)
--- NOTE | 2016-05-05 14:28 | NUR ---
WOUND CARE CONSULT: PT PRESENTS WITH MULTIPLE SKIN ISSUES INCLUDING LEFT LEG WITH SWELLING AND PURPLE DISCOLORATION/BRUISING, LEFT HEEL SUSPECTED DEEP TISSUE INJURY(INTACT), LEFT GROIN EXCORIATED AREA AND RASH TO PERINEUM, BUTTOCKS, INNER THIGHS AND RT BREAST FOLD. PT ON FIRST STEP MATTRESS. PT TO BE TURNED AND REPOSITIONED EVERY 2 HRS PT CONDITION PERMITS, HEELS FLOATED. ALL SKIN PROTECTION MEASURES IN PLACE AND DISCUSSED WITH NURSING STAFF. MD IN AGREEMENT WITH PLAN OF CARE. Addendum: 05/05/16 at 1431 by DIANA FRANCO RN Amended: Links added.
[2016-05-05] MEDS: CLOTRIMAZOLE/BETAMET DIPROP CREAM 15 GM TUBE TOP SCH ×2 (16:44→21:00)
--- NOTE | 2016-05-05 18:24 | NUR ---
Plan of care effective. Pt's pain managed with Morphine sulfate 2mg, no fall noted, no aspiration noted, Will notify next shift of need for stool for OB. Pt is in no acute distress.
--- NOTE | 2016-05-05 20:00 | NUR ---
RECEIVED PATIENT AWAKE IN BED WITH PRIMARY CAREGIVER AT BEDSIDE. PATIENT IS A/O X2. FORGETFUL AT TIMES BUT ABLE TO MAKE NEEDS KNOWN. VSS. LEFT LOWER LEG, BRUISING AND SWELLING NOTED. ELEVATED ON PILLOWS. NO C/O PAIN AT THIS TIME. WILL CONTINUE TO MONITOR. ON O2 2L NC, NEEDS REMINDER TO KEEP O2 ON. NO RESP. DISTRESS NOTED. HEPLOCK INTACT AND PATENT. ON AIR MATTRESS. CALL LIGHT IN REACH. ALL NEEDS ATTENDED. WILL CONTINUE TO MONITOR.
[2016-05-05] MEDS: ATORVASTATIN 10 MG TABLET PO SCH (21:01)
[2016-05-06] VITALS: BP 115/50
[2016-05-06] MEDS: MORPHINE SULFATE 2 MG/1 ML DISP.SYRIN IV PRN ×3 (03:04→16:44)
[2016-05-06 04:00] VITALS: BP 130/66
--- NOTE | 2016-05-06 05:51 | NUR ---
PATIENT AWAKE IN BED. SLEPT AT SMALL INTERVALS. ON TELE SR WITH BORDERLINE BBB AND 1ST DEGREE AVB. VSS. SITTER AT BEDSIDE. LEFT LOWER LEG ELEVATED ORDERED. NO C/O PAIN AT THIS TIME. BED ALARM ON. CALL LIGHT IN REACH. ALL NEEDS ATTENDED. WILL CONTINUE TO MONITOR AND ASSESS.
[2016-05-06] MEDS: LEVOTHYROXINE SODIUM 50 MCG TABLET PO SCH (06:11)
[2016-05-06 08:32] LABS: BASOPHILS # (AUTO) 0.4 K/uL (0.0-0.2); BASOPHILS % (AUTO) 3.2 % (0.0-2.0); EOSINOPHILS # (AUTO) 0.4 K/uL (0.0-0.7); HEMATOCRIT 28.5 % (37.0-47.0); HEMOGLOBIN 9.4 g/dL (12.0-16.0); LYMPHOCYTES # (AUTO) 1.3 K/uL (0.8-4.8); LYMPHOCYTES % (AUTO) 10.9 % (20.5-51.5); MEAN CORPUSCULAR HEMOGLOBIN 29.5 uug (27.0-31.0); MEAN CORPUSCULAR HGB CONC 33 g/dL (32.0-37.0); MEAN CORPUSCULAR VOLUME 89.2 fL (81.0-99.0); MONOCYTES # (AUTO) 0.6 K/uL (0.1-1.30); MONOCYTES % (AUTO) 4.6 % (0.0-11.0); NEUTROPHILS # (AUTO) 9.4 K/uL (1.8-8.9); NEUTROPHILS % (AUTO) 78.3 % (38.5-71.5); PLATELET COUNT (AUTO) 288 K/uL (150-450); RED CELL DISTRIBUTION WIDTH 15.7 % (11.5-14.5); WHITE BLOOD COUNT (AUTO) 12.1 K/uL (4.0-11.2)
[2016-05-06] MEDS: PANTOPRAZOLE SODIUM 40 MG VIAL IV SCH ×2 (09:14→20:57)
[2016-05-06] MEDS: CALCIUM CARBONATE 500 MG TABLET PO SCH (09:14)
[2016-05-06] MEDS: CLOTRIMAZOLE/BETAMET DIPROP CREAM 15 GM TUBE TOP SCH ×2 (09:15→20:57)
[2016-05-06] MEDS: Z GUARD REMEDY PASTE 57 GM TUBE TOP SCH ×2 (09:17→20:57)
[2016-05-06 09:25] LABS: ALBUMIN 1.9 g/dL (3.4-5.0); BILIRUBIN,TOTAL 0.7 mg/dL (0.2-1.0); CALCIUM 8.2 mg/dL (8.5-10.1); MAGNESIUM 2.2 mg/dL (1.8-2.4); PHOSPHOROUS 4.1 mg/dL (2.5-4.9); POTASSIUM 5.5 mmol/L (3.5-5.1); TOTAL PROTEIN, SERUM 5.8 g/dL (6.4-8.2)
[2016-05-06 09:26] LABS: CREATININE 1.5 mg/dL (0.6-1.3)
--- NOTE | 2016-05-06 09:30 | NUR ---
L. wrist IV tender and not flushing. 2 new IV insertion attempts by documenting nurse and successful insertion of iv in right forearm on second attempt by FILIBERTO Price.
[2016-05-06] MEDS: FLUCONAZOLE 200 MG/NS 100ML IV 100 MG in PREMIXED 1 EACH IV SCH (10:29)
[2016-05-06 10:52] LABS: LYMPHOCYTES % (MANUAL) 13 % (20-40); MONOCYTES % (MANUAL) 9 % (2-10); NEUTROPHILS % (MANUAL) 78 % (42-75); PLATELET ESTIMATE ADEQUATE
[2016-05-06 10:53] LABS: ANISOCYTOSIS 1+; HYPOCHROMASIA 1+
[2016-05-06 11:34] VITALS: BP 141/55
[2016-05-06] MEDS: MEROPENEM 250 MG in IV NORMAL SALINE 50 ML IV SCH ×2 (12:09→23:06)
[2016-05-06 15:53] VITALS: BP 132/58
[2016-05-06] MEDS: LINEZOLID IV 600 MG in PREMIXED 1 EACH IV SCH (16:27)
--- NOTE | 2016-05-06 19:30 | NUR ---
Patient lying in bed awake with no s/s of distress. 1:1 sitter at bedside. Call light within reach. Will continue to monitor.
[2016-05-06 20:00] VITALS: BP 149/55
[2016-05-06] MEDS: ATORVASTATIN 10 MG TABLET PO SCH (20:57)
[2016-05-06] MEDS ORDERED: SODIUM POLYSTYRENE SULFONATE 15 G/60 ML LIQUID UDC PO ONE (21:45)
[2016-05-07] VITALS (11 sets, daily range): BP systolic 108–171; BP diastolic 46–98
[2016-05-07] MEDS: LINEZOLID IV 600 MG in PREMIXED 1 EACH IV SCH (04:11)
[2016-05-07] MEDS: MORPHINE SULFATE 2 MG/1 ML DISP.SYRIN IV PRN ×3 (05:50→23:48)
[2016-05-07] MEDS: LEVOTHYROXINE SODIUM 50 MCG TABLET PO SCH (06:15)
--- NOTE | 2016-05-07 06:45 | NUR ---
Patient awake in bed, caregiver at bedside. NPO post midnight in preparation for today's surgery. Due meds given. Pain medication administered as ordered. Comfort measures done. Call light kept within reach. Endorsed accordingly.
[2016-05-07 07:13] LABS: BASOPHILS % (AUTO) 0.3 % (0.0-2.0); EOSINOPHILS # (AUTO) 0.2 K/uL (0.0-0.7); HEMATOCRIT 26.4 % (37.0-47.0); HEMOGLOBIN 8.3 g/dL (12.0-16.0); LYMPHOCYTES # (AUTO) 0.9 K/uL (0.8-4.8); LYMPHOCYTES % (AUTO) 11.2 % (20.5-51.5); MEAN CORPUSCULAR HEMOGLOBIN 28.5 uug (27.0-31.0); MEAN CORPUSCULAR HGB CONC 31 g/dL (32.0-37.0); MEAN CORPUSCULAR VOLUME 91.1 fL (81.0-99.0); MONOCYTES # (AUTO) 0.7 K/uL (0.1-1.30); MONOCYTES % (AUTO) 8.9 % (0.0-11.0); NEUTROPHILS # (AUTO) 6.4 K/uL (1.8-8.9); NEUTROPHILS % (AUTO) 77.6 % (38.5-71.5); PLATELET COUNT (AUTO) 341 K/uL (150-450); RED CELL DISTRIBUTION WIDTH 15.8 % (11.5-14.5); WHITE BLOOD COUNT (AUTO) 8.2 K/uL (4.0-11.2)
[2016-05-07 07:24] LABS: ALBUMIN 1.9 g/dL (3.4-5.0); BILIRUBIN,TOTAL 0.7 mg/dL (0.2-1.0); CALCIUM 8.2 mg/dL (8.5-10.1); MAGNESIUM 2.1 mg/dL (1.8-2.4); PHOSPHOROUS 3.1 mg/dL (2.5-4.9); POTASSIUM 4.8 mmol/L (3.5-5.1); TOTAL PROTEIN, SERUM 5.7 g/dL (6.4-8.2)
--- NOTE | 2016-05-07 07:52 | NUR ---
Awake, alert, on moderate high back rest, O2 at 2L/NC. NPO reinstructed and maintained.
[2016-05-07] MEDS: PANTOPRAZOLE SODIUM 40 MG VIAL IV SCH ×2 (08:34→20:25)
[2016-05-07] MEDS: Z GUARD REMEDY PASTE 57 GM TUBE TOP SCH ×2 (08:43→21:10)
[2016-05-07] MEDS: CLOTRIMAZOLE/BETAMET DIPROP CREAM 15 GM TUBE TOP SCH ×2 (08:44→21:11)
[2016-05-07] MEDS: CALCIUM CARBONATE 500 MG TABLET PO SCH (08:44)
[2016-05-07] MEDS: FLUCONAZOLE 200 MG/NS 100ML IV 100 MG in PREMIXED 1 EACH IV SCH (09:07)
[2016-05-07] MEDS ORDERED: POLYMYXIN B SULFATE 500,000 UNITS, BACITRACIN 50,000 UNITS, NORMAL SALINE 20 ML MC ONE ×3 (10:00)
[2016-05-07] MEDS ORDERED: BUPIVACAINE PF 0.5% 30 ML VIAL ONE (11:05)
[2016-05-07] MEDS ORDERED: BUPIVACAINE/EPI PF 0.5% 10 ML VIAL ONE (11:05)
[2016-05-07] MEDS: MEROPENEM 250 MG in IV NORMAL SALINE 50 ML IV SCH (11:10)
--- NOTE | 2016-05-07 11:16 | NUR ---
Clinical pharmacy note-Vancomycin dosing per pharmacy Subjective: To start Vancomycin dosing on this 89 year old female patient for cellulitis Objective: BUN 24 Scr 1.0 WBC 8.2 Temp 98 Ht 5'2" Wt 174 lbs Assessment/Plan: Since patient had Zyvox today at 0411, will dose first dose of Vancomycin today at 1600(12hrs post zyvox dose). Will start Vancomycin 1 gram IV every 26hrs and draw trough by 4th dose(not ordered yet) for expected trough around 15. Will monitor renal function closely to adjust the dose if needed. Will follow daily.
--- NOTE | 2016-05-07 12:30 | NUR ---
To OR by bed
[2016-05-07] MEDS ORDERED: IV NORMAL SALINE 1000 ML BAG IV ONE (13:23)
[2016-05-07] MEDS ORDERED: LIDOCAINE HCL 1% 20 ML VIAL MC ONE (13:23)
[2016-05-07] MEDS ORDERED: PROPOFOL 200 MG/20 ML BOTTLE IV ONE (13:23)
[2016-05-07] MEDS ORDERED: DEXAMETHASONE SOD PHOSPHATE 4 MG INJ IV ONE (13:23)
[2016-05-07] MEDS ORDERED: SEVOFLURANE 250 ML BOTTLE IH ONE (13:23)
[2016-05-07] MEDS ORDERED: CEFAZOLIN 1 G VIAL MC ONE (13:23)
[2016-05-07] MEDS ORDERED: LABETALOL HCL 100 MG/20 ML VIAL MC ONE (13:23)
[2016-05-07] MEDS ORDERED: ONDANSETRON 4 MG/2 ML VIAL IV ONE (13:23)
[2016-05-07] MEDS ORDERED: NEOMY/BACITRAC/POLYMI OINT 28.35 GM TUBE ONE (14:44)
[2016-05-07] MEDS ORDERED: FENTANYL CITRATE 100 MCG/2 ML AMPUL ONE (16:23)
[2016-05-07] MEDS ORDERED: IV D5W-0.45% NS +20 KCL 1,000 ML IV ONE (16:31)
[2016-05-07] MEDS ORDERED: LABETALOL HCL 100 MG/20 ML VIAL ONE (16:42)
[2016-05-07] MEDS ORDERED: HYDROMORPHONE 1 MG/1 ML DISP.SYRIN ONE (16:52)
[2016-05-07] MEDS ORDERED: hydrALAZINE HCL 20 MG/1 ML VIAL ONE (17:01)
[2016-05-07] MEDS ORDERED: MORPHINE SULFATE 4 MG/1 ML DISP.SYRIN IV PRN ×2 (17:30)
[2016-05-07] MEDS ORDERED: MORPHINE SULFATE 2 MG/1 ML DISP.SYRIN IV PRN ×2 (17:30→18:06)
[2016-05-07] MEDS ORDERED: IV D5W-0.45% NS +20 KCL 1,000 ML IV PRN (17:30)
--- NOTE | 2016-05-07 17:30 | NUR ---
RECIEVED PT FROM RECOVERY ROOM VIA BED, POST OP ORIF OF THE TIBIA. DROWSY BUT EASILY AROUSABLE AND PT IS MOANING A LOT. C/O PAIN LEVEL 10 ON THE LEFT LEG. VSS. HAS LEG IMMOBILIZER IN PLACE. PT IS UNABLE TO WIGGLE LEFT TOES FOR NOW BUT PT CAN FEEL MY TOUCH. PULSE IS PRESENT BY DOPPLER.
--- NOTE | 2016-05-07 18:20 | NUR ---
MEDICATED FOR PAIN. MAIN IVF IS D31/2NS WITH 20MEQ KCL AT 75 VIA THE RIGHT UPPER ARM MIDLINE ACCESS. NO APPARENT DISTRESS NOTED.
[2016-05-07] MEDS: VANCOMYCIN IV 1 G in PREMIXED 0 EACH IV SCH (18:25)
--- NOTE | 2016-05-07 19:30 | NUR ---
Received patient and SBAR report from Sher De La Garza RN. Patient is resting in bed. Awake, alert, oriented x1. Complains of LLE pain despite PRN pain medication recently administered. Sinus rhythm on monitor with slightly elevated BP. Simple mask in place with 6L/min O2, SpO2 and RR WNL. Bell catheter intact and draining. Left leg immobilzer in place, SCD pump on. 1st step mattress. Right upper arm midline intact, flushing well. Will continue to monitor. Will continue plan of care.
[2016-05-07] MEDS: IV D5 1/2 NS 1000 ML 1,000 ML IV PRN (20:25)
[2016-05-07] MEDS: MORPHINE SULFATE 4 MG/1 ML DISP.SYRIN IV PRN (20:26)
[2016-05-07] MEDS: ATORVASTATIN 10 MG TABLET PO SCH (21:11)
[2016-05-07] MEDS ORDERED: CEFAZOLIN 2 G in IV DEXTROSE 5% 100 ML IV SCH (21:30)
[2016-05-07] MEDS: MEROPENEM 500 MG in IV NORMAL SALINE 50 ML IV SCH (23:08)
[2016-05-08] VITALS (29 sets, daily range): BP systolic 102–151; BP diastolic 49–90
--- NOTE | 2016-05-08 | NUR ---
Continually complains of pain, managed with PRN medications as ordered. Improved pain level after medications have been given, however consistently needs medication around the clock. Attempted non-pharm pain resolution, including distraction and repositioning, however patient continues to ask for pain medication. Will continue to monitor and manage PRN
[2016-05-08] MEDS: MORPHINE SULFATE 4 MG/1 ML DISP.SYRIN IV PRN ×5 (01:17→21:02)
[2016-05-08] MEDS: MORPHINE SULFATE 2 MG/1 ML DISP.SYRIN IV PRN ×2 (03:30→07:59)
[2016-05-08 05:13] LABS: ALBUMIN 1.8 g/dL (3.4-5.0); BILIRUBIN,TOTAL 0.7 mg/dL (0.2-1.0); CALCIUM 7.7 mg/dL (8.5-10.1); CREATININE 1.1 mg/dL (0.6-1.3); MAGNESIUM 1.8 mg/dL (1.8-2.4); PHOSPHOROUS 3.3 mg/dL (2.5-4.9); POTASSIUM 5.2 mmol/L (3.5-5.1); TOTAL PROTEIN, SERUM 5.5 g/dL (6.4-8.2)
[2016-05-08 05:14] LABS: BASOPHILS # (AUTO) 0.2 K/uL (0.0-0.2); BASOPHILS % (AUTO) 1.8 % (0.0-2.0); EOSINOPHILS % (AUTO) 0.1 % (0.0-7.0); HEMATOCRIT 22.6 % (37.0-47.0); LYMPHOCYTES # (AUTO) 0.5 K/uL (0.8-4.8); LYMPHOCYTES % (AUTO) 4.8 % (20.5-51.5); MEAN CORPUSCULAR HEMOGLOBIN 29.7 uug (27.0-31.0); MEAN CORPUSCULAR HGB CONC 32 g/dL (32.0-37.0); MEAN CORPUSCULAR VOLUME 91.5 fL (81.0-99.0); MONOCYTES # (AUTO) 0.6 K/uL (0.1-1.30); MONOCYTES % (AUTO) 5.4 % (0.0-11.0); NEUTROPHILS # (AUTO) 10.1 K/uL (1.8-8.9); NEUTROPHILS % (AUTO) 87.9 % (38.5-71.5); PLATELET COUNT (AUTO) 203 K/uL (150-450); RED CELL DISTRIBUTION WIDTH 15.9 % (11.5-14.5); WHITE BLOOD COUNT (AUTO) 11.4 K/uL (4.0-11.2)
[2016-05-08 05:33] LABS: HEMOGLOBIN 7.3 g/dL (12.0-16.0); RED BLOOD CELL COUNT(AUTO) 2.47 MIL/uL (4.20-5.40)
[2016-05-08 05:39] LABS: ANISOCYTOSIS 1+; BAND % (MANUAL) 2 % (0-10); LYMPHOCYTES % (MANUAL) 4 % (20-40); MONOCYTES % (MANUAL) 6 % (2-10); NEUTROPHILS % (MANUAL) 88 % (42-75); PLATELET ESTIMATE ADEQUATE
[2016-05-08] MEDS: LEVOTHYROXINE SODIUM 50 MCG TABLET PO SCH (06:17)
[2016-05-08] MEDS: PANTOPRAZOLE SODIUM 40 MG VIAL IV SCH (07:49)
[2016-05-08] MEDS: CALCIUM CARBONATE 500 MG TABLET PO SCH (07:49)
[2016-05-08] MEDS: CLOTRIMAZOLE/BETAMET DIPROP CREAM 15 GM TUBE TOP SCH ×2 (07:49→21:14)
[2016-05-08] MEDS: Z GUARD REMEDY PASTE 57 GM TUBE TOP SCH ×2 (07:50→21:14)
--- NOTE | 2016-05-08 09:55 | NUR ---
Dr. Valentin (Ortho) here to see pt. No new orders received.
[2016-05-08] MEDS ORDERED: MIRALAX 17 GM POWD.PACK PO PRN (10:00)
[2016-05-08] MEDS: FLUCONAZOLE 200 MG/NS 100ML IV 100 MG in PREMIXED 1 EACH IV SCH (10:11)
[2016-05-08] MEDS: IV D5 1/2 NS 1000 ML 1,000 ML IV PRN (10:26)
[2016-05-08] MEDS ORDERED: FUROSEMIDE 20 MG/2 ML VIAL IV PRN (10:45)
[2016-05-08] MEDS: MEROPENEM 500 MG in IV NORMAL SALINE 50 ML IV SCH ×2 (10:58→22:57)
--- NOTE | 2016-05-08 13:38 | NUR ---
Clinical pharmacy note-Vancomycin dosing per pharmacy Subjective: To continue Vancomycin dosing on this 89 year old female patient for cellulitis Objective: BUN 22 Scr 1.1 WBC 11.4 Temp 97.7 Ht 5'2" Wt 174 lbs Assessment/Plan: As renal function stable, continued Vancomycin 1 gram IV every 26hrs and draw trough by 4th dose(not ordered yet) for expected trough around 15. Will monitor renal function closely to adjust the dose if needed. Will follow daily.
--- NOTE | 2016-05-08 14:40 | NUR ---
1st unit of PRBC started. Instructed the pt to notify me of any negative reactions such as discomfort, itchiness, headache, etc. Pt verbalized understanding. Will closely monitor for any adverse transfusion reactions.
--- NOTE | 2016-05-08 15:05 | NUR ---
Pt tolerating blood transfusion well. No adverse reactions noted or reported from the pt. Will continue to monitor.
--- NOTE | 2016-05-08 17:45 | NUR ---
1st unit of PRBC complete. Pt tolerated blood transfusion well. No adverse reactions noted or reported from the pt.
[2016-05-08] MEDS: VANCOMYCIN IV 1 G in PREMIXED 0 EACH IV SCH (17:53)
[2016-05-08] MEDS: PANTOPRAZOLE SODIUM 40 MG TABLET.DR PO SCH (17:53)
--- NOTE | 2016-05-08 18:00 | NUR ---
2nd unit of PRBC started.
--- NOTE | 2016-05-08 20:30 | NUR ---
Completed 2nd unit of pRBCs. No adverse reactions, no acute distress. Patient tolerated well.
[2016-05-08] MEDS: ATORVASTATIN 10 MG TABLET PO SCH (21:00)
[2016-05-08] MEDS: SENNOSIDES 1 TABLET PO SCH (21:01)
--- NOTE | 2016-05-08 22:30 | NUR ---
Informed MD of decreased urinary output imbalance with IV intake. OK to give Lasix now. Will implement and continue to monitor.
[2016-05-08] MEDS: HYDROCODONE/APAP 7.5-325MG TABLET PO PRN (23:17)
[2016-05-09] VITALS (18 sets, daily range): BP systolic 95–158; BP diastolic 46–71
[2016-05-09] MEDS: MORPHINE SULFATE 4 MG/1 ML DISP.SYRIN IV PRN (00:25)
[2016-05-09 06:23] LABS: BASOPHILS # (AUTO) 0.2 K/uL (0.0-0.2); BASOPHILS % (AUTO) 1.2 % (0.0-2.0); EOSINOPHILS # (AUTO) 0.1 K/uL (0.0-0.7); EOSINOPHILS % (AUTO) 1.1 % (0.0-7.0); LYMPHOCYTES # (AUTO) 1.2 K/uL (0.8-4.8); LYMPHOCYTES % (AUTO) 9.2 % (20.5-51.5); MEAN CORPUSCULAR HEMOGLOBIN 29.2 uug (27.0-31.0); MEAN CORPUSCULAR HGB CONC 32 g/dL (32.0-37.0); MEAN CORPUSCULAR VOLUME 91.2 fL (81.0-99.0); MONOCYTES # (AUTO) 0.6 K/uL (0.1-1.30); NEUTROPHILS # (AUTO) 10.5 K/uL (1.8-8.9); NEUTROPHILS % (AUTO) 83.5 % (38.5-71.5); RED CELL DISTRIBUTION WIDTH 15.4 % (11.5-14.5); WHITE BLOOD COUNT (AUTO) 12.6 K/uL (4.0-11.2)
[2016-05-09 06:32] LABS: HEMOGLOBIN 10.3 g/dL (12.0-16.0); RED BLOOD CELL COUNT(AUTO) 3.52 MIL/uL (4.20-5.40)
[2016-05-09 06:33] LABS: PLATELET COUNT (AUTO) 268 K/uL (150-450)
[2016-05-09] MEDS: LEVOTHYROXINE SODIUM 50 MCG TABLET PO SCH (06:41)
[2016-05-09] MEDS: PANTOPRAZOLE SODIUM 40 MG TABLET.DR PO SCH ×2 (06:41→17:01)
[2016-05-09 06:43] LABS: ALBUMIN 2.1 g/dL (3.4-5.0); BILIRUBIN,TOTAL 0.9 mg/dL (0.2-1.0); CALCIUM 7.7 mg/dL (8.5-10.1); MAGNESIUM 1.9 mg/dL (1.8-2.4); PHOSPHOROUS 4.7 mg/dL (2.5-4.9); POTASSIUM 5.1 mmol/L (3.5-5.1); TOTAL PROTEIN, SERUM 5.9 g/dL (6.4-8.2)
[2016-05-09] MEDS: MORPHINE SULFATE 2 MG/1 ML DISP.SYRIN IV PRN ×3 (06:48→17:02)
[2016-05-09 06:52] LABS: CREATININE 1.7 mg/dL (0.6-1.3)
--- NOTE | 2016-05-09 07:30 | NUR ---
RECIEVED LYING IN BED, AWAKE, ALERT AND ORIENTEDX3. VERY COOPERATIVE AND VERY PLEASANT. PT MOANS AND GROANS WHEN TURNED OR MOVED. HOB ELEVATED 45DEGREES. LEFT LEG WITH IMMOBILIZER, DRESSING INTACT ON THE INCISION SITE. NO BLEEDING OR DRAINAGE NOTED. PT NOT ABLE TO WIGGLE HER LEFT FOOT BUT SHE STATES THAT SHE CAN FEEL MY TOUCH. PEDAL PULSES IS WEAK BUT AUDIBLE VIA DOPPLER. LOWER LEG IS SLIGHT RED AND EDMATOUS +1 AND LEFT FOOT HAS +2 EDEMA. ELEVATED LEFT LEG WITH 1 PILLOW. AFEBRILE. VSS.
--- NOTE | 2016-05-09 08:30 | NUR ---
PT ABLE TO EAT BREAKFAST WELL BUT PT COUGHS INTERMITTENTLY. SWALLOWING GOOD BUT PT IS ENCOURAGED TO EAT AND SWALLOW SLOWLY. SITTER AT THE BEDSIDE.
[2016-05-09] MEDS: CALCIUM CARBONATE 500 MG TABLET PO SCH (09:37)
[2016-05-09] MEDS: Z GUARD REMEDY PASTE 57 GM TUBE TOP SCH ×2 (09:37→20:42)
[2016-05-09] MEDS: CLOTRIMAZOLE/BETAMET DIPROP CREAM 15 GM TUBE TOP SCH ×2 (09:38→20:42)
[2016-05-09] MEDS: ALBUTEROL SULFATE 1.25 MG/3 ML NEBU NEB PRN (10:24)
--- NOTE | 2016-05-09 10:35 | NUR ---
PT IS AUDIBLY WHEEZING MOSTLY WITH EXPIRATION. REQUESTED RT TO GIVE BREATHING TX AND PT FEELS BETTER. NOTIFIED DR TABARES OF PT'S CONDITION STATUS. IVF DISCONTINUED ORDERED.
[2016-05-09] MEDS: FLUCONAZOLE 200 MG/NS 100ML IV 100 MG in PREMIXED 1 EACH IV SCH (10:38)
--- NOTE | 2016-05-09 10:57 | NUR ---
Clinical pharmacy note-Vancomycin dosing per pharmacy Subjective: To continue Vancomycin dosing on this 89 year old female patient for cellulitis Objective: BUN 33 Scr 1.7 WBC 12.6 Temp 98.2 Ht 5'2" Wt 174 lbs Assessment/Plan: Since srcr has increased from 1.1 yesterday to 1.7 today, will start dosing by fall off levels. Patient received vancomycin 1gm IVPB x1 yesterday at 1800. Will check vancomycin random level today at 1730. pharmacy will review the level when available for further dosing. Will follow daily. Addendum: 05/09/16 at 1858 by SIMONE GOEL ADM VANCOMYCIN RANDOM WAS 16 AT 1800 TODAY. VANCOMYCIN 1 GRAM X1 WILL BE GIVEN AT 2000 TONIGHT. WILL DECIDE NEXT RANDOM LEVEL BASED ON TOMORROW'S LAB.
--- NOTE | 2016-05-09 11:00 | NUR ---
SEEN AND EXAMINED BY DR TABARES WITH NEW ORDERS. IVF IS DISCONTINUED. HEPLOCK THE MIDLINE ACCESS ON THE RIGHT UPPER ARM.
[2016-05-09] MEDS: MEROPENEM 500 MG in IV NORMAL SALINE 50 ML IV SCH ×2 (12:15→23:49)
--- NOTE | 2016-05-09 16:20 | NUR ---
PT EVALUATION DONE AT BEDSIDE BY PT. PT COOPERATIVE AND ABLE TO FOLLOW. PT ABLE TO SIT UP AT THE SIDE OF THE BED, NONBEARING ON HER LEFT LEG.
--- NOTE | 2016-05-09 16:45 | NUR ---
PT'S MIDLINE SITE APPEARS RED AND PURPLISH BUT FLASHES FINE. PT FEELS PAIN WITH FLUSHING. CALLED UP THE PICC LINE NURSE FOR ANOTHER MIDLINE REINSERTION. REPORT GIVEN TO BRIGETTE DE LOS SANTOS. MADE AWARE OF THE MIDLINE INSERTION LATER TONITE. URINE SENT FOR NA. PROTEIN, EOS AND CREATININE ORDERED.
--- NOTE | 2016-05-09 17:10 | NUR ---
TRANSFERRED TO 205 VIA BED. CONDITION STABLE.
--- NOTE | 2016-05-09 18:05 | NUR ---
PATIENT TRANSFERRED FROM CCU. PATIENT ALERT AWAKE IN NO ACUTE DISTRESS. RESPIRATIONS EVEN AND UNLABORED. 0XYGEN ON 2L/NC. FIRST STEP MATTRESS AND DVT PUMPS IN PLACE. FAMILY AT BEDSIDE.
[2016-05-09 19:19] LABS: *BILIRUBIN,URIN NEGATIVE (NEGATIVE); *BLOOD, URINE Trace-lysed (NEGATIVE); *CLARITY,URINE CLEAR (CLEAR); *COLOR,URINE YELLOW (YELLOW); *KETONES,URINE NEGATIVE (NEGATIVE); *PROTEIN,URINE 1+ (NEGATIVE); LEUKOCYTE ESTERASE ,URINE NEGATIVE (NEGATIVE); NITRITE, URINE NEGATIVE (NEGATIVE); PH,URINE 5.5 (5.0-8.0); UGLUCOSE NEGATIVE (NEGATIVE)
[2016-05-09 19:24] LABS: *CREATININE,URINE 81.9 mg/dL (30-125); *URINE TOTAL PROTEIN RANDOM 50.9 mg/dL (<150/24HR)
[2016-05-09 19:35] LABS: BACTERIA,URINE FEW /HPF (NONE SEEN); RBC,URINE 0-3 /HPF (0-3); SQUAMOUS EPITHELIAL CELL,UR FEW /HPF (NONE SEEN); YEAST,URINE RARE /HPF (NONE SEEN)
[2016-05-09] MEDS ORDERED: VANCOMYCIN IV 1 G in PREMIXED 0 EACH IV ONE (20:00)
[2016-05-09] MEDS: SENNOSIDES 1 TABLET PO SCH (20:37)
[2016-05-09] MEDS: ATORVASTATIN 10 MG TABLET PO SCH (20:37)
[2016-05-09] MEDS ORDERED: VANCOMYCIN IV 200 ML ONE (21:17)
[2016-05-10 00:43] VITALS: BP 150/70
[2016-05-10 04:00] VITALS: BP 160/82
[2016-05-10] MEDS: PANTOPRAZOLE SODIUM 40 MG TABLET.DR PO SCH ×2 (06:25→16:48)
[2016-05-10] MEDS: LEVOTHYROXINE SODIUM 50 MCG TABLET PO SCH (06:25)
[2016-05-10] MEDS: HYDROCODONE/APAP 7.5-325MG TABLET PO PRN ×3 (06:28→20:20)
[2016-05-10 07:03] LABS: CALCIUM 8.2 mg/dL (8.5-10.1); CREATININE 1.3 mg/dL (0.6-1.3); PHOSPHOROUS 3.8 mg/dL (2.5-4.9); POTASSIUM 5.9 mmol/L (3.5-5.1)
[2016-05-10 07:09] LABS: BASOPHILS # (AUTO) 0.1 K/uL (0.0-0.2); BASOPHILS % (AUTO) 0.6 % (0.0-2.0); EOSINOPHILS # (AUTO) 0.2 K/uL (0.0-0.7); EOSINOPHILS % (AUTO) 1.8 % (0.0-7.0); HEMATOCRIT 30.4 % (37.0-47.0); HEMOGLOBIN 10.1 g/dL (12.0-16.0); LYMPHOCYTES # (AUTO) 1.1 K/uL (0.8-4.8); MEAN CORPUSCULAR HEMOGLOBIN 30.6 uug (27.0-31.0); MEAN CORPUSCULAR HGB CONC 33 g/dL (32.0-37.0); MEAN CORPUSCULAR VOLUME 92.1 fL (81.0-99.0); MONOCYTES % (AUTO) 8.6 % (0.0-11.0); PLATELET COUNT (AUTO) 228 K/uL (150-450); RED BLOOD CELL COUNT(AUTO) 3.31 MIL/uL (4.20-5.40); RED CELL DISTRIBUTION WIDTH 15.6 % (11.5-14.5); WHITE BLOOD COUNT (AUTO) 11.4 K/uL (4.0-11.2)
--- NOTE | 2016-05-10 07:30 | NUR ---
RECIEVED PT LYING IN BED, AWAKE, ALERT AND ORIENTEDX3. SITTER AT THE BEDSIDE. HOB ELEVATED 45DEGREES. VERY PLEASANT AND COOPERATIVE. PT IS SLEEPING ON AND OFF AND PAIN IS LESSER FROM THE MEDICATION GIVEN EARLIER. LEFT LEG IS ELEVATED ON PILLOW WITH A LEG IMMOBILIZER IN PLACE. PEDAL PULSE IS WEAK BUT PALPABLE. LEFT FOOT IS SLIGHTLY SWOLLEN +2 AND THE LOWER LEG IS SLIGHTLY RD. PT ABLE TO FEEL THE TOUCH BUT HAS DIFFICULTY TO WIGGLE THE TOES. IV ACCESS ON THE RIGHT FA PATENT AND INTACT. AFEBRILE.
[2016-05-10] MEDS: CALCIUM CARBONATE 500 MG TABLET PO SCH (08:43)
[2016-05-10] MEDS: CLOTRIMAZOLE/BETAMET DIPROP CREAM 15 GM TUBE TOP SCH ×2 (08:47→21:00)
[2016-05-10] MEDS: Z GUARD REMEDY PASTE 57 GM TUBE TOP SCH ×2 (08:47→20:24)
--- NOTE | 2016-05-10 09:00 | NUR ---
PT ATE WELL BUT PT IS COUGHING ON AND OFF WITH SWALLOWING. INSTRUCTED TO EAT AND SWALLOW SLOWLY. HOB UP AT 45DEGREES.
[2016-05-10] MEDS: FLUCONAZOLE 200 MG/NS 100ML IV 100 MG in PREMIXED 1 EACH IV SCH (10:47)
[2016-05-10] MEDS ORDERED: SODIUM POLYSTYRENE SULFONATE 15 G/60 ML LIQUID UDC PO ONE (11:00)
[2016-05-10 11:58] VITALS: BP 149/61
[2016-05-10] MEDS: MEROPENEM 500 MG in IV NORMAL SALINE 50 ML IV SCH ×2 (12:24→22:47)
--- NOTE | 2016-05-10 12:29 | NUR ---
Clinical pharmacy note-Vancomycin dosing per pharmacy Subjective: To continue Vancomycin dosing on this 89 year old female patient for cellulitis Objective: BUN 36 Scr 1.3 (previously 1.7) WBC 11.4 Temp 99 Ht 5'2" Wt 174 lbs Random @1800 05/09: 16 Assessment/Plan: Due to recent increase in Scr, will continue dosing by fall off levels. will do. One dose 1gm vancomycin was given yesterday at 1999 based on random level. Scr seems to be resolving today, random ordered with tomorrow am labs. Will check level and re-dose as accordingly. Will also continue to monitor renal function and adjust as appropriate. Will follow daily.
[2016-05-10] MEDS: METOPROLOL SUCCINATE XL 50 MG TAB.SR.24H PO SCH (12:36)
--- NOTE | 2016-05-10 12:37 | NUR ---
K-5.9 KAYEXALATE 30GMS ORALLY GIVEN TO PT ORDERED BY DR TABARES.
--- NOTE | 2016-05-10 13:00 | NUR ---
ULTRASOUND OF THE KIDNEY DONE AT THE BEDSIDE ORDERED. PHYSICAL THERAPIST WORKED WITH PT AFTER THE LUNCH. TOLERATED WELL.
[2016-05-10] MEDS ORDERED: Z GUARD REMEDY PASTE 57 GM TUBE TOP PRN (14:30)
[2016-05-10 16:00] VITALS: BP 141/65
--- NOTE | 2016-05-10 18:15 | NUR ---
PT HAS A VERY LARGE SOFT WATRY BROWN BM. CLEANED UP AND PT IS VERY COOPERATIVE.
[2016-05-10 19:00] VITALS: BP 156/64
[2016-05-10] MEDS: SENNOSIDES 1 TABLET PO SCH (20:18)
[2016-05-10] MEDS: ATORVASTATIN 10 MG TABLET PO SCH (20:18)
[2016-05-10] MEDS: MORPHINE SULFATE 2 MG/1 ML DISP.SYRIN IV PRN (22:32)
[2016-05-11] MEDS: HYDROCODONE/APAP 7.5-325MG TABLET PO PRN ×3 (00:55→23:10)
[2016-05-11 04:00] VITALS: BP 137/65
[2016-05-11] MEDS: PANTOPRAZOLE SODIUM 40 MG TABLET.DR PO SCH ×2 (06:13→16:53)
[2016-05-11] MEDS: LEVOTHYROXINE SODIUM 50 MCG TABLET PO SCH (06:13)
--- NOTE | 2016-05-11 07:10 | NUR ---
PATIENT RECEIVED IN ROOM RESTING WITH EYES CLOSED IN NO ACUTE DISTRESS. RESPIRATIONS EVEN AND UNLABORED. IV SITE INTACT AND PATENT. DVT PUMP TO RIGHT LEG, L LEG IMMOBILIZER AND FIRST STEP MATTRESS IN PLACE.
[2016-05-11] MEDS: MORPHINE SULFATE 4 MG/1 ML DISP.SYRIN IV PRN (08:20)
[2016-05-11] MEDS: METOPROLOL SUCCINATE XL 50 MG TAB.SR.24H PO SCH (08:23)
[2016-05-11] MEDS: CLOTRIMAZOLE/BETAMET DIPROP CREAM 15 GM TUBE TOP SCH (08:23)
[2016-05-11] MEDS: CALCIUM CARBONATE 500 MG TABLET PO SCH (08:23)
[2016-05-11] MEDS: Z GUARD REMEDY PASTE 57 GM TUBE TOP SCH ×2 (08:24→21:00)
[2016-05-11 09:36] LABS: BASOPHILS # (AUTO) 0.1 K/uL (0.0-0.2); BASOPHILS % (AUTO) 0.9 % (0.0-2.0); EOSINOPHILS # (AUTO) 0.3 K/uL (0.0-0.7); EOSINOPHILS % (AUTO) 2.7 % (0.0-7.0); HEMATOCRIT 31.2 % (37.0-47.0); HEMOGLOBIN 10.5 g/dL (12.0-16.0); LYMPHOCYTES # (AUTO) 1.2 K/uL (0.8-4.8); LYMPHOCYTES % (AUTO) 11.1 % (20.5-51.5); MEAN CORPUSCULAR HEMOGLOBIN 30.8 uug (27.0-31.0); MEAN CORPUSCULAR HGB CONC 34 g/dL (32.0-37.0); MEAN CORPUSCULAR VOLUME 91.5 fL (81.0-99.0); MONOCYTES # (AUTO) 0.5 K/uL (0.1-1.30); MONOCYTES % (AUTO) 4.2 % (0.0-11.0); NEUTROPHILS # (AUTO) 8.6 K/uL (1.8-8.9); NEUTROPHILS % (AUTO) 81.1 % (38.5-71.5); PLATELET COUNT (AUTO) 238 K/uL (150-450); RED BLOOD CELL COUNT(AUTO) 3.41 MIL/uL (4.20-5.40); RED CELL DISTRIBUTION WIDTH 15.3 % (11.5-14.5); WHITE BLOOD COUNT (AUTO) 10.7 K/uL (4.0-11.2)
[2016-05-11 09:55] LABS: CALCIUM 8.4 mg/dL (8.5-10.1); MAGNESIUM 1.9 mg/dL (1.8-2.4); PHOSPHOROUS 3.8 mg/dL (2.5-4.9); POTASSIUM 5.8 mmol/L (3.5-5.1)
--- NOTE | 2016-05-11 10:08 | NUR ---
Clinical pharmacy note-Vancomycin dosing per pharmacy Subjective: To continue Vancomycin dosing on this 89 year old female patient for cellulitis Objective: BUN 31 Scr 1 WBC 10.7 Temp 97.5 Ht 5'2" Wt 191 lbs Random @060: 16 Assessment/Plan: Since srcr is back to 1.0, will start vancomycin 1gm IVPB q26h for predicted vancomycin tough level of 15 at steady state. first dose due today at 11am. Plan to draw vancomycin trough level before 4th dose(level not yet ordered). Will continue to monitor renal function and adjust as appropriate. Will follow daily.
[2016-05-11] MEDS: FLUCONAZOLE 200 MG/NS 100ML IV 100 MG in PREMIXED 1 EACH IV SCH (10:56)
[2016-05-11] MEDS ORDERED: VANCOMYCIN IV 1 G in PREMIXED 0 EACH IV SCH (11:00)
[2016-05-11 11:30] VITALS: BP 144/61
--- NOTE | 2016-05-11 12:00 | NUR ---
PATIENT SEEN BY
[2016-05-11] MEDS: MEROPENEM 500 MG in IV NORMAL SALINE 50 ML IV SCH ×2 (12:02→23:10)
[2016-05-11] MEDS: MORPHINE SULFATE 2 MG/1 ML DISP.SYRIN IV PRN ×3 (12:41→23:43)
[2016-05-11] MEDS ORDERED: MIRALAX 17 GM POWD.PACK PO ONE (13:15)
[2016-05-11 15:39] VITALS: BP 148/73
--- NOTE | 2016-05-11 17:13 | NUR ---
END OF SHIFT NOTE: PATIENT IN NO ACUTE DISTRESS THROUGHOUT SHIFT. PAIN MANAGED WITH MEDICATION PRESCRIBED, RESTING COMFORTABLY AFTER ADMINISTRATION BUT C/O PAIN WITH TURNING AND REPOSITIONING. VSS. RESPIRATIONS EVEN AND UNLABORED. PATIENT'S O2 DECREASES TO 88% IN ROOM AIR. 02 UP TO 97% WITH 2L/NC. IS TEACHING DONE. HAD 1 SM BM. TURNED AND REPOSITIONED EVERY 2 HOURS AND PRN. DRESSING CHANGED TO LET LEG SURGICAL INCISION AND NO S/S OF INFECTION OBSERVED. PATIENT SEEN BY DR. VASQUEZ. CONTINUES WITH LEFT LEG IMMOBILIZER AND DVT PUMP TO RIGHT LEG. PERSONAL SITTER AT BEDSIDE.
[2016-05-11 19:00] VITALS: BP 161/69
--- NOTE | 2016-05-11 19:15 | NUR ---
PATIENT AWAKE, VERBALLY RESPONSIVE, LEFT LEG SLIGHTLY ELEVATED WITH PILLOW, LEG BRACE IN PLACE, LEFT FOOT WARM TO TOUCH, CAPILLARY REFILL LESS THAN 2 SECONDS, PEDAL PULSE PRESENT, ON PAIN MANAGEMENT, HARDEN CATH PATENT, NO S/S OF DISTRESS.
[2016-05-11] MEDS: SENNOSIDES 1 TABLET PO SCH (20:59)
[2016-05-11] MEDS: ATORVASTATIN 10 MG TABLET PO SCH (21:00)
--- NOTE | 2016-05-11 21:00 | NUR ---
LOTRISONE CREAM UNAVAILABLE, WILL NOTIFY PHARMACY IN AM.
[2016-05-12] MEDS: ZOLPIDEM 5 MG TABLET PO PRN ×2 (01:12→23:37)
[2016-05-12 04:00] VITALS: BP 150/70
[2016-05-12] MEDS: PANTOPRAZOLE SODIUM 40 MG TABLET.DR PO SCH ×2 (06:14→18:08)
--- NOTE | 2016-05-12 06:46 | NUR ---
PATIENT SLEPT MOST OF THE NIGHT, LEFT LEG BRACE IN PLACE, LEFT LEG WARM DRY TO TOUCH PEDAL PULSE PRESENT, HARDEN CATH PATENT, NO SOB, NO CHEST PAIN NOTED. CONT ON PAIN MANAGEMENT.
[2016-05-12] MEDS: MORPHINE SULFATE 2 MG/1 ML DISP.SYRIN IV PRN (07:46)
[2016-05-12] MEDS: LEVOTHYROXINE SODIUM 50 MCG TABLET PO SCH (07:48)
[2016-05-12] MEDS: CALCIUM CARBONATE 500 MG TABLET PO SCH (07:48)
[2016-05-12] MEDS: CLOTRIMAZOLE/BETAMET DIPROP CREAM 15 GM TUBE TOP SCH ×2 (07:49→22:53)
[2016-05-12] MEDS: Z GUARD REMEDY PASTE 57 GM TUBE TOP SCH ×2 (07:50→20:24)
--- NOTE | 2016-05-12 07:55 | NUR ---
PATIENT RECEIVED IN ROOM EASILY AWAKEN IN NO ACUTE DISTRESS. RESPIRATIONS EVEN AND UNLABORED. PATIENT ON 2L/NC. DVT PUMP TO RIGHT LEG AND LEFT KNEE IMMOBILIZER IN PLACE. CONTINUES ON FIRST STEP MATTRESS. PERSONAL DIGITAL RETOUCHER AT BEDSIDE.
[2016-05-12] MEDS: METOPROLOL SUCCINATE XL 50 MG TAB.SR.24H PO SCH (08:04)
[2016-05-12 08:45] LABS: BASOPHILS # (AUTO) 0.1 K/uL (0.0-0.2); BASOPHILS % (AUTO) 0.7 % (0.0-2.0); EOSINOPHILS # (AUTO) 0.3 K/uL (0.0-0.7); EOSINOPHILS % (AUTO) 2.7 % (0.0-7.0); HEMATOCRIT 30.8 % (37.0-47.0); HEMOGLOBIN 10.1 g/dL (12.0-16.0); LYMPHOCYTES # (AUTO) 1.1 K/uL (0.8-4.8); LYMPHOCYTES % (AUTO) 10.3 % (20.5-51.5); MEAN CORPUSCULAR HGB CONC 33 g/dL (32.0-37.0); MEAN CORPUSCULAR VOLUME 91.7 fL (81.0-99.0); MONOCYTES # (AUTO) 0.4 K/uL (0.1-1.30); MONOCYTES % (AUTO) 3.8 % (0.0-11.0); NEUTROPHILS # (AUTO) 8.9 K/uL (1.8-8.9); NEUTROPHILS % (AUTO) 82.5 % (38.5-71.5); PLATELET COUNT (AUTO) 266 K/uL (150-450); RED BLOOD CELL COUNT(AUTO) 3.36 MIL/uL (4.20-5.40); RED CELL DISTRIBUTION WIDTH 15.2 % (11.5-14.5); WHITE BLOOD COUNT (AUTO) 10.8 K/uL (4.0-11.2)
[2016-05-12] MEDS ORDERED: METOPROLOL TARTRATE 50 MG TABLET PO ONE (09:27)
[2016-05-12] MEDS ORDERED: METOPROLOL SUCCINATE XL 50 MG TAB.SR.24H PO ONE (09:34)
[2016-05-12 09:41] LABS: ALBUMIN 1.9 g/dL (3.4-5.0); BILIRUBIN,TOTAL 0.7 mg/dL (0.2-1.0); CALCIUM 8.5 mg/dL (8.5-10.1); CREATININE 1.1 mg/dL (0.6-1.3); MAGNESIUM 1.9 mg/dL (1.8-2.4); PHOSPHOROUS 3.5 mg/dL (2.5-4.9); POTASSIUM 5.6 mmol/L (3.5-5.1); TOTAL PROTEIN, SERUM 5.8 g/dL (6.4-8.2)
[2016-05-12 10:35] LABS: LYMPHOCYTES % (MANUAL) 4 % (20-40); NEUTROPHILS % (MANUAL) 77 % (42-75)
[2016-05-12 10:36] LABS: ANISOCYTOSIS 1+; EOSINOPHILS % (MANUAL) 7 % (0-8); MONOCYTES % (MANUAL) 5 % (2-10)
--- NOTE | 2016-05-12 10:40 | NUR ---
IV INFILTRATED, DR. MIN NOTIFIED. NEW ORDERS TO DC IV ANTIBIOTICS, LASIX 20 PO X1, CXR.
[2016-05-12] MEDS ORDERED: FUROSEMIDE 20 MG TABLET PO ONE (10:45)
[2016-05-12] MEDS: SULFAMETH/TRIMETH 800/160 MG TABLET PO SCH ×2 (11:21→20:23)
[2016-05-12] MEDS: HYDROCODONE/APAP 7.5-325MG TABLET PO PRN ×2 (11:22→20:37)
[2016-05-12 11:33] VITALS: BP 153/61
[2016-05-12 15:46] LABS: *CHLORIDE RNDM,URINE 105 mmol/L (100-250); *POTASSIUM RNDM,URINE 35 mmol/L (25-125); *SODIUM RNDM,URINE 74 mmol/L (40-220)
[2016-05-12 16:12] VITALS: BP 155/65
--- NOTE | 2016-05-12 18:37 | NUR ---
END OF SHIFT NOTE: PATIENT IN NO ACUTE DISTRESS THROUGHOUT SHIFT. PAIN MANAGE WITH MEDICATION PRESCRIBED. VSS. RESPIRATIONS EVEN AND UNLABORED. CONTINUES WITH 2L/NC. HOB ELEVATED. PATIENT WITH GOOD APPETITE. HARDEN CATH IN PLACE WITH URINE YELLOW AND CLEAR. LEG IMMOBILIZER TO LLE AND DVT PUMP TO RLE. FIST STEP MATTRESS IN PLACE. TURNED AND REPOSITIONED EVERY 2 HOURS AND PRN. WOUND TX DONE ORDERED. SITTER AT BEDSIDE.
[2016-05-12 19:00] VITALS: BP 157/69
--- NOTE | 2016-05-12 19:00 | NUR ---
PATIENT AWAKE, VERBALLY RESPONSIVE, COMPLAIN OF PAIN OF LEFT LEG, IMMOBILIZER IN PLACE, LEFT LEG WARM AND DRY TO TOUCH, PEDAL PULSE PRESENT, HARDEN CATH PATENT DRAINING WITH YELLOW COLOR URINE IN MODERATE AMOUNT, TURN AND REPOSITION, KEPT CLEAN AND DRY. TREATMENT CONTINUE ON KAMERON AREA, AND RASHES. NO S/S OF DISTRESS.
[2016-05-12] MEDS: ATORVASTATIN 10 MG TABLET PO SCH (20:23)
[2016-05-12] MEDS: SENNOSIDES 1 TABLET PO SCH (20:23)
[2016-05-13] MEDS: HYDROCODONE/APAP 7.5-325MG TABLET PO PRN ×3 (02:44→14:35)
[2016-05-13 04:00] VITALS: BP 150/69
[2016-05-13] MEDS: PANTOPRAZOLE SODIUM 40 MG TABLET.DR PO SCH ×2 (06:24→16:51)
[2016-05-13] MEDS: LEVOTHYROXINE SODIUM 50 MCG TABLET PO SCH (06:25)
--- NOTE | 2016-05-13 06:59 | NUR ---
PATIENT SLEEP ON AND OFF, CONTINUE ON PAIN MANAGEMENT, LEG IMMOBILIZER IN PLACE, SKIN WARM AND DRY TO TOUCH, SKIN COLOR WNL, HARDEN CATH PATENT, TURN AND REPOSITION, KEPT CLEAN AND DRY NO S/S OF DISTRESS.
[2016-05-13 07:01] LABS: BASOPHILS # (AUTO) 0.1 K/uL (0.0-0.2); EOSINOPHILS # (AUTO) 0.2 K/uL (0.0-0.7); EOSINOPHILS % (AUTO) 2.2 % (0.0-7.0); HEMATOCRIT 30.3 % (37.0-47.0); LYMPHOCYTES # (AUTO) 1.1 K/uL (0.8-4.8); LYMPHOCYTES % (AUTO) 10.7 % (20.5-51.5); MEAN CORPUSCULAR HGB CONC 33 g/dL (32.0-37.0); MEAN CORPUSCULAR VOLUME 91.2 fL (81.0-99.0); MONOCYTES # (AUTO) 0.8 K/uL (0.1-1.30); MONOCYTES % (AUTO) 7.8 % (0.0-11.0); NEUTROPHILS # (AUTO) 8.4 K/uL (1.8-8.9); NEUTROPHILS % (AUTO) 78.3 % (38.5-71.5); PLATELET COUNT (AUTO) 289 K/uL (150-450); RED BLOOD CELL COUNT(AUTO) 3.33 MIL/uL (4.20-5.40); WHITE BLOOD COUNT (AUTO) 10.6 K/uL (4.0-11.2)
[2016-05-13 07:06] LABS: BILIRUBIN,TOTAL 0.6 mg/dL (0.2-1.0); CALCIUM 8.5 mg/dL (8.5-10.1); CREATININE 1.1 mg/dL (0.6-1.3); MAGNESIUM 1.8 mg/dL (1.8-2.4); PHOSPHOROUS 3.8 mg/dL (2.5-4.9); POTASSIUM 5.9 mmol/L (3.5-5.1); TOTAL PROTEIN, SERUM 5.9 g/dL (6.4-8.2)
[2016-05-13] MEDS ORDERED: SODIUM POLYSTYRENE SULFONATE 15 G/60 ML LIQUID UDC PO ONE ×2 (08:00→09:30)
[2016-05-13] MEDS ORDERED: FUROSEMIDE 40 MG TABLET PO ONE (08:00)
[2016-05-13] MEDS: CALCIUM CARBONATE 500 MG TABLET PO SCH (08:18)
[2016-05-13] MEDS: SULFAMETH/TRIMETH 800/160 MG TABLET PO SCH (08:19)
[2016-05-13] MEDS: CLOTRIMAZOLE/BETAMET DIPROP CREAM 15 GM TUBE TOP SCH (08:20)
[2016-05-13] MEDS: Z GUARD REMEDY PASTE 57 GM TUBE TOP SCH (08:20)
[2016-05-13] MEDS ORDERED: METOPROLOL SUCCINATE XL 50 MG TAB.SR.24H PO SCH (09:00)
[2016-05-13] MEDS ORDERED: METOPROLOL SUCCINATE XL 100 MG TAB.SR.24H PO SCH (09:00)
--- NOTE | 2016-05-13 09:00 | NUR ---
PATIENT RECEIVED IN BED RESTING, CAREGIVER AT THE BEDSIDE. PATIENT C/O OF PAIN 8/, MEDICATED WAS ORDERED. SAFETY AND COMFORT PROVIDED. WILL CONTINUE MONITORING BREATHING.
[2016-05-13 09:27] LABS: BAND % (MANUAL) 1 % (0-10); BASOPHILS % (MANUAL) 1 % (0-2); EOSINOPHILS % (MANUAL) 1 % (0-8); LYMPHOCYTES % (MANUAL) 4 % (20-40); MONOCYTES % (MANUAL) 6 % (2-10); NEUTROPHILS % (MANUAL) 83 % (42-75)
[2016-05-13 09:28] LABS: PLATELET ESTIMATE ADEQUATE
[2016-05-13] MEDS ORDERED: AMLODIPINE 5 MG TABLET PO SCH (09:30)
[2016-05-13] MEDS: ALBUTEROL SULFATE 1.25 MG/3 ML NEBU NEB PRN (10:31)
[2016-05-13 11:40] VITALS: BP 128/66
--- NOTE | 2016-05-13 13:16 | NUR ---
LABORED BREATHING WAS NOTED, WITH MILD WHEEZING. DR. MCKEON WHO WAS IN THE HOSPITAL WAS NOTIFIED. LATER, PT NOTIFIED ME ABOUT THE WHEEZING WAS GETTING WORST. CALL ANGELA RT FOR BREATHING TREATMENT. WILL CONTINUE MONITORING.
[2016-05-13 14:35] LABS: CALCIUM 8.3 mg/dL (8.5-10.1); CREATININE 1.2 mg/dL (0.6-1.3); POTASSIUM 5.5 mmol/L (3.5-5.1)
--- NOTE | 2016-05-13 15:15 | NUR ---
The patient will be discharged today back to [facility] [ ; [address] [place] [address]] via [facility]. Her son and caregivers are aware of her discharge and in agreement with it. Anushka from [facility] confirmed that they will admit the patient today. Her RN, Jacquelin, is aware of her discharge plan and will call the facility for the report.
[2016-05-13] MEDS ORDERED: SULF1TAB3 PO (15:16)
[2016-05-13] MEDS ORDERED: ACID1TAB4 PO (15:16)
[2016-05-13] MEDS ORDERED: AMLO5TAB2 PO (15:16)
[2016-05-13] MEDS ORDERED: HYDR-3976 PO (15:16)
[2016-05-13] MEDS ORDERED: METO100T7 PO (15:16)
[2016-05-13] MEDS ORDERED: CLOT15CR36 TOP (15:16)
[2016-05-13] MEDS ORDERED: Sennosides PO (15:16)
[2016-05-13] MEDS ORDERED: POLY17PO4 PO (15:16)
[2016-05-13] MEDS ORDERED: WARF3TAB29 PO (15:16)
[2016-05-13 15:19] VITALS: BP 152/66
[2016-05-13] MEDS ORDERED: WARFARIN SODIUM 5 MG TABLET PO STA (16:53)
--- NOTE | 2016-05-13 17:45 | NUR ---
PATIENT BEEN DISCHARGE TO [facility]. NO S/S OF DISTRESS NOTED AT THE MOMENT. C/O OF PAIN DURING MY SHIFT. MEDICATED ORDERED. REPORT WAS GIVEN TO FILIBERTO HO. DISCHARGE INSTRUCTIONS WERE SIGNED BY ELIOT AND Alireza DUE TO PATIENT UNABLE TO SIGN. F/C STILL ON. CAREGIVER AT THE BEDSIDE DURING THE DAY. PHOTOS WERE TAKEN FROM THE SHIFT BEFORE, ONE PHOTO WAS TAKEN TO THE [facility], AND PLACE IT IN THE CHART. DR. TABARES ORDERED ONE DOSE OF COUMADIN PO 5 MG, BEFORE LEAVING. PATIENT WAS TAKEN BY AMBULANCE IN SAFE CONDITION. SAFETY AND COMFORT WAS PROVIDED BY STAFF.
== END 2016-05-13 17:51 | DRG 492 ==
LOC: ER 21:30 → TELE 05-05 00:53 → CCU 05-07 16:57 → MED 05-09 18:01
PROVIDERS: ADMIT Internal Medicine; ATTEND Internal Medicine
PROC: 30233N1 Transfusion of Nonautologous Red Blood Cells into Peripheral Vein, Percutaneous Approach (ICD-10-PCS; 2016-05-05)
PROC: 0QUH0JZ Supplement Left Tibia with Synthetic Substitute, Open Approach (ICD-10-PCS; 2016-05-07)
PROC: 05H533Z Insertion of Infusion Device into Right Subclavian Vein, Percutaneous Approach (ICD-10-PCS; 2016-05-07)
PROC: 0QSH04Z Reposition Left Tibia with Internal Fixation Device, Open Approach (ICD-10-PCS; principal; 2016-05-07 13:23)
DX: S82.192 Other fracture of upper end of left tibia (principal); N17.0 Acute kidney failure with tubular necrosis; E43 Unspecified severe protein-calorie malnutrition; G93.40 Encephalopathy, unspecified; L03.116 Cellulitis of left lower limb; I13.0 Hypertensive heart and chronic kidney disease with heart failure and stage 1 through stage 4 chronic kidney disease, or unspecified chronic kidney disease; D68.59 Other primary thrombophilia; B37.49 Other urogenital candidiasis; E87.0 Hyperosmolality and hypernatremia; J90 Pleural effusion, not elsewhere classified; I50.32 Chronic diastolic (congestive) heart failure; E87.5 Hyperkalemia; D50.0 Iron deficiency anemia secondary to blood loss (chronic); K58.9 Irritable bowel syndrome, unspecified; K57.30 Diverticulosis of large intestine without perforation or abscess without bleeding; D50.9 Iron deficiency anemia, unspecified; R19.5 Other fecal abnormalities; I25.10 Atherosclerotic heart disease of native coronary artery without angina pectoris; M21.379 Foot drop, unspecified foot; Z91.81 History of falling; Z87.440 Personal history of urinary (tract) infections; Z87.11 Personal history of peptic ulcer disease; N18.2 Chronic kidney disease, stage 2 (mild); K44.9 Diaphragmatic hernia without obstruction or gangrene; M19.90 Unspecified osteoarthritis, unspecified site; F32.9 Major depressive disorder, single episode, unspecified; E66.9 Obesity, unspecified; E03.9 Hypothyroidism, unspecified; I48.91 Unspecified atrial fibrillation; Z87.01 Personal history of pneumonia (recurrent); Z86.19 Personal history of other infectious and parasitic diseases; Z85.828 Personal history of other malignant neoplasm of skin; Z85.028 Personal history of other malignant neoplasm of stomach; Z79.01 Long term (current) use of anticoagulants; R73.03 Prediabetes; E88.09 Other disorders of plasma-protein metabolism, not elsewhere classified; D63.8 Anemia in other chronic diseases classified elsewhere; S80.12XA Contusion of left lower leg, initial encounter; X58.XXXA Exposure to other specified factors, initial encounter; Y93.9 Activity, unspecified; Y92.89 Other specified places as the place of occurrence of the external cause; Y99.9 Unspecified external cause status; Z95.2 Presence of prosthetic heart valve; Z68.33 Body mass index [BMI] 33.0-33.9, adult; Z87.310 Personal history of (healed) osteoporosis fracture; I35.0 Nonrheumatic aortic (valve) stenosis; R13.10 Dysphagia, unspecified; Z86.14 Personal history of Methicillin resistant Staphylococcus aureus infection; Z85.51 Personal history of malignant neoplasm of bladder; X58.XXXD Exposure to other specified factors, subsequent encounter; M81.0 Age-related osteoporosis without current pathological fracture; Z79.899 Other long term (current) drug therapy
CPT/HCPCS: 36415; 70030-TC; 71010; 73590; 73700; 76000; 76770; 83605; 83735; 84100; 84133; 84156; 84300; 84443; 85025; 85610; 85730; 86850; 86900; 86901; 86920; 87040; 87086; 92506; 93005; 94664; 97001; 97003; 97110; 97112; 97530; 97535; A4649; A4663; C1713; C9113; J0360; J0690; J1100; J1170; J1450; J1940; J2020; J2185; J2270; J2405; J3010; J3370; J3490; J7030; J7040; J7050; J7060; P9016-BL; P9021